=== PATIENT | female | born 2000 | race Two or more races ===

== ENCOUNTER 2023-09-11 15:31 | Emergency (ER) | payer MEDICAID, SELFPAY ==
[2023-09-11 16:16] VITALS: BP 113/71; PULSE 91; RESP 16; TEMP 36.8; O2SAT 99; BMI 18.7
--- NOTE | 2023-09-11 16:24 | ED.GENADULT ---
[facility] - General Adult General Chief complaint: Vaginal Bleeding Stated complaint: abd pain, vaginal bleeding Time Seen by Provider: 09/11/23 21:10 Source: patient and gaming host Mode of arrival: ambulatory History of Present Illness HPI narrative: 23-year-old female who presents with complaints of abdominal discomfort and is currently on her menstrual cycle but also reports a grayish vaginal discharge and some itching. Patient is 5 months Related Data Previous Rx's Medication Instructions Recorded metronidazole 500 mg tablet 500 mg PO BID 7 days #14 tabs 09/12/23 cefuroxime axetil 500 mg tablet 500 mg PO BID 7 days #14 tabs 09/13/23 doxycycline hyclate 100 mg capsule 100 mg PO BID cough 14 days #28 09/13/23 caps metronidazole 500 mg tablet 500 mg PO BID 7 days #14 tabs 09/13/23 Allergies Allergy/AdvReac Type Severity Reaction Status Date / Time No Known Allergies Allergy Verified 09/11/23 16:22 Review of Systems Review of Systems: Pertinent positives and negatives as stated in HPI [facility] Past Medical History Source: nursing notes reviewed Medical History (Updated 09/14/23 @ 00:02 by Annette Pace) Menorrhagia Social History Social History Alcohol intake: current Alcohol intake frequency: holidays/special occasions only Advance Directives: No Advance Directives Information Provided: No Patient : No Physical Exam ED Vital Signs: Vital Signs - 24 hr 09/11/23 16:16 09/11/23 19:12 09/11/23 21:39 Temperature 98.3 F 98.1 F Pulse Rate 91 68 72 Respiratory Rate 16 18 16 Blood Pressure 113/71 116/77 111/75 Pulse Oximetry 99 100 100 Oxygen Delivery Method Room Air Room Air Room Air BMI result Body Mass Index 18.7 VITAL SIGNS: Reviewed. GENERAL: Well developed, well nourished, in no acute distress. HEAD: Normocephalic/atraumatic EYES: PERRLA, EOMI EARS: Ext canals without abnormality, TMs non-bulging and non-erythematous NOSE: Nares patent bilateral OROPHARYNX: no oral lesions noted, posterior pharynx clear and non-erythematous without noted tonsillar enlargement/erythema/exudates NECK: Supple, no adenopathy LUNGS: Normal breath sounds. No adventitious sounds or accessory muscle use. SpO2<100> CARDIOVASCULAR: Regular rate and rhythm without noted murmurs ABDOMEN: Soft, non-tender, non-distended with bowel sounds. MUSCULOSKELETAL: No tenderness, deformities, or effusions noted on gross inspection. EXTREMITIES: No cyanosis, clubbing or edema. SKIN: Inspection of the skin reveals no rashes NEUROLOGIC: Alert and oriented x 4. Strength and sensation to light touch were grossly intact x 4. Course Course Course Narrative: RME; 23 yold female presents to the for Vaginal bleeding and lower abdominal pain. unknown if she is . vaginal bleeding came late. labs ordered Medical Decision Making Medical Decision Making MDM Narrative: 23-year-old female with history and clinical presentation, DDX: Ectopic, UTI, STI, menstrual cycle discomfort. I reviewed all investigations and hematologic indices are negative for leukocytosis or left shift and there is no anemia or thrombocytopenia. Chemistry indices are grossly within normal limits without ELIZABETH there is no evidence of electrolyte or liver enzyme abnormalities. Beta hCG is undetectable. Urinalysis is significant for known menstrual bleeding findings and urine is negative. My interpretation is that patient is experiencing bacterial vaginosis and will receive prescription for treatment and was strongly encouraged with a community health advocate to follow-up on the results of her sexually transmitted infection testing. Lower clinical suspicion for STI. No concerns for torsion. Differential Diagnosis Differential Diagnoses: The differential diagnosis associated with the presentation includes Please see the discussion above Admission/Observation Consideration of admission/observation: Escalation of care including admission/observation considered Please see the discussion above Lab Data MDM Lab Attestation statement: I reviewed the patient's lab results. Please see the discussion above 09/11/23 18:34 09/11/23 18:34 Labs: Lab Results 09/11/23 Range/Units 18:34 WBC 9.1 (4.8-10.8) X10*3/uL RBC 4.76 (4.20-5.50) X10*6/uL Hgb 13.2 (12.0-16.0) g/dl Hct 40.5 (37.0-47.0) % MCV 85.1 (80.0-98.0) fL MCH 27.7 (27.0-33.0) pg MCHC 32.6 (31.0-35.0) g/dl RDW 15.6 (11.0-16.0) % Plt Count 340 (160-400) X10*3/uL MPV 10.5 (9.4-12.3) fL Immature Gran % (Auto) 0.2 (0.0-0.4) % Neut % (Auto) 67.2 (45-73) % Lymph % (Auto) 25.2 (20-40) % Wilkinson % (Auto) 4.7 (2-11) % Eos % (Auto) 1.9 (0-4) % Baso % (Auto) 0.8 (0-2) % Lymph # (Auto) 2.3 (1.2-4.9) X10*3/uL Wilkinson # (Auto) 0.4 (0.1-1.2) X10*3/uL Eos # (Auto) 0.2 (0.0-0.4) X10*3/uL Baso # (Auto) 0.1 (0.0-0.2) X10*3/uL Abs Immat Gran (auto) 0.02 (0.00-0.03) X10*3/uL Absolute Neuts (auto) 6.1 (2.0-8.3) x10*3/uL Absolute Nucleated RBC 0.000 (0.0-0.012) X10*3/uL Nucleated RBC % (auto) 0.0 (0.0-0.2) /100WBC Sodium 140 (135-145) mmol/L Potassium 4.2 (3.3-5.1) mmol/L Chloride 105 (96-108) mmol/L Carbon Dioxide 26 (22-29) mmol/L Anion Gap 13 (12-20) BUN 10 (9-16) mg/dL Creatinine 0.71 (0.5-1.4) mg/dL Estim Creat Clear Calc 100.9 Estimated GFR > 60 Random Glucose 89 (60-115) mg/dL Calcium 10.0 (8.4-10.2) mg/dL Total Bilirubin 0.6 (0.0-1.0) mg/dL AST 14 (5-31) U/L ALT 7 (0-31) U/L Alkaline Phosphatase 75 (39-117) U/L Total Protein 7.9 (6.5-8.0) g/dL Albumin 4.6 (3.5-5.0) g/dL Beta HCG, Quant < 2 mIU/mL Urine Color Yellow Urine Appearance Cloudy Urine pH 7.0 (5.0-9.0) Ur Specific [place] 1.025 (1.005-1.025) Urine Protein Trace (Neg-Trace) mg/dL Urine Glucose (UA) Negative (Negative) mg/dL Urine Ketones Trace (Negative) mg/dL Urine Blood Large (3+) H (Negative) Urine Nitrite Negative (Negative) Ur Leukocyte Esterase Moderate (2+) H (Negative) Urine RBC >20 H (0-2) /HPF Urine WBC >50 H (0-5) /HPF Ur Squamous Epith Cells 0-2 (0-2) /HPF Urine Bacteria Trace (None Seen) Hyaline Casts 0-2 (0-2) /LPF Urine Test NEGATIVE (NEGATIVE) Chlam trachomat DNA PCR NOT DETECTED (Not Detect.) N.gonorrhoeae DNA (PCR) DETECTED A (Not Detect.) Discharge Plan Discharge Clinical Impression: Bacterial vaginosis Patient Disposition: Home, Self-Care Instructions: Bacterial Vaginosis (ED) Additional Instructions: 1. Complete todo el ciclo de antibi?ticos seg?n lo prescrito. 2. Shilpi un seguimiento con mathews m?dico de atenci?n primaria en los pr?ximos 1 o 2 d?as. 3. Shilpi un seguimiento de los resultados de praful pruebas, deber?an estar disponibles en la ma?sherlyn. Regrese a la mellisa de emergencias si los s?ntomas empeoran. 1. Complete the entire course of antibiotics as prescribed. 2. Please follow-up with your primary care doctor in the next 1-2 days. 3. Please follow-up on the results of your testing, they should be available in the morning. Return to the ER for any worsening symptoms. Prescriptions: New metronidazole 500 mg tablet 500 mg PO BID 7 Days Qty: 14 0RF No Action cefuroxime axetil 500 mg tablet 500 mg PO BID 7 Days Qty: 14 0RF doxycycline hyclate 100 mg capsule 100 mg PO BID 14 Days Qty: 28 0RF metronidazole 500 mg tablet 500 mg PO BID 7 Days Qty: 14 0RF Interventions: ED Discharge Assessment Last Done: 09/12/23 00:53 Discharge Date/Time: 09/12/23 00:50 Print Language: Swiss
[2023-09-11 18:42] LABS: Basophils Absolute Auto 0.1 X10*3/uL (0.0-0.2); Basophils Percent Auto 0.8 % (0-2); Eosinophils Absolute Auto 0.2 X10*3/uL (0.0-0.4); Eosinophils Percent Auto 1.9 % (0-4); Hematocrit 40.5 % (37.0-47.0); Hemoglobin 13.2 g/dl (12.0-16.0); Imm Gran Abs Auto 0.02 X10*3/uL (0.00-0.03); Imm Gran Pct Auto 0.2 % (0.0-0.4); Lymphocytes Absolute Auto 2.3 X10*3/uL (1.2-4.9); Lymphocytes Percent Auto 25.2 % (20-40); MANUAL DIFF FLAG NO; Mean Corpuscular HGB Conc 32.6 g/dl (31.0-35.0); Mean Corpuscular Hemoglobin 27.7 pg (27.0-33.0); Mean Corpuscular Volume 85.1 fL (80.0-98.0); Mean Platelet Volume 10.5 fL (9.4-12.3); Monocytes Absolute Auto 0.4 X10*3/uL (0.1-1.2); Monocytes Percent Auto 4.7 % (2-11); Neutrophils Absolute Auto 6.1 x10*3/uL (2.0-8.3); Neutrophils Percent Auto 67.2 % (45-73); Platelet Count 340 X10*3/uL (160-400); Red Blood Count 4.76 X10*6/uL (4.20-5.50); Red Cell Distribution Width 15.6 % (11.0-16.0); White Blood Count 9.1 X10*3/uL (4.8-10.8)
[2023-09-11 18:44] LABS: Appearance Urine Cloudy; Color Urine Yellow; Glucose Urine UA Negative (Negative); Leukocyte Esterase Urine Moderate (2+) (Negative); Nitrite Urine Negative (Negative); Specific Gravity - Urine 1.025 (1.005-1.025); UMIC TRIGGER UACC YES; UPreg QC Valid YES; Urine Blood Large (3+) (Negative); Urine Ketones Trace mg/dL (Negative); Urine Pregnancy NEGATIVE (NEGATIVE); Urine Protein Trace mg/dL (Neg-Trace)
[2023-09-11 19:03] LABS: Alanine Aminotransferase 7 U/L (0-31); Albumin Level 4.6 g/dL (3.5-5.0); Alkaline Phosphatase 75 U/L (39-117); Anion Gap 13 (12-20); Aspartate Amino Transferase 14 U/L (5-31); Bilirubin Total 0.6 mg/dL (0.0-1.0); Blood Urea Nitrogen 10 mg/dL (9-16); Carbon Dioxide 26 mmol/L (22-29); Chloride 105 mmol/L (96-108); Creatinine Clr Calc Pharmacy 100.9; Estimated Glomerular Filt Rate > 60; Glucose Random 89 mg/dL (60-115); HCG Quantitative < 2 mIU/mL; Potassium 4.2 mmol/L (3.3-5.1); Sodium 140 mmol/L (135-145); Total Protein 7.9 g/dL (6.5-8.0)
[2023-09-11 19:12] VITALS: BP 116/77; PULSE 68; RESP 18; O2SAT 100
[2023-09-11 19:57] LABS: Bacteria Urine Trace (None Seen); Hyaline Casts Urine 0-2 /LPF (0-2); RBC Urine >20 /HPF (0-2); Squamous Epithelial Cell Urine 0-2 /HPF (0-2); UACC Culture Trigger YES; WBC Urine >50 /HPF (0-5)
[2023-09-11 21:39] VITALS: BP 111/75; PULSE 72; RESP 16; TEMP 36.7; O2SAT 100
[2023-09-12 00:51] VITALS: BP 116/83; PULSE 61; RESP 16; TEMP 36.7; O2SAT 98
[2023-09-12 04:47] LABS: CT PCR NOT DETECTED (Not Detect.); NG PCR DETECTED (Not Detect.)
== END 2023-09-12 00:50 | disposition home or self-care (01) ==
PROVIDERS: Physician Assistant; Emergency Provider Student in an Organized Health Care Education/Training Program
DX: N76.0 Acute vaginitis (principal)
CPT/HCPCS: 0353U; 36415; 80053; 81001; 81025; 84702; 85025; 87086; 87147; 99283; 99284

== ENCOUNTER 2023-09-13 03:02 | Emergency (ER) | payer MEDICAID, SELFPAY ==
--- NOTE | ~2023-09-13 | CT_ITS ---
EXAMINATION: CT ABDOMEN AND PELVIS WITH CONTRAST CLINICAL INFORMATION: Rule out tubo-ovarian abscess COMPARISON: None available. TECHNIQUE: Multidetector volumetric images were obtained from the superior aspect of the liver through the pubic symphysis following administration 85 mL of Omnipaque 350 intravenous contrast. Sagittal and coronal reformatted images were obtained on the technologist's workstation. Oral contrast: No This CT examination was performed using dose optimization techniques as appropriate, variously including the following: *Automated exposure control *Adjustment of mA and/or kV according to patient size (this includes techniques or standardized protocols for targeted exams where dose is matched to indication/reason for exam; i.e. extremities or head) *Use of iterative reconstruction technique DLP: 310 mGy-cm FINDINGS: LUNG BASES: The visualized lung bases are unremarkable. LIVER, GALLBLADDER, AND BILIARY TREE: The liver is normal in size, shape, and attenuation. No focal hepatic lesion or biliary ductal dilatation is present. The gallbladder is unremarkable with no evidence of radiopaque gallstones, gallbladder wall thickening, or obvious pericholecystic inflammatory changes. PANCREAS: Unremarkable. SPLEEN: Unremarkable. ADRENAL GLANDS: Unremarkable. KIDNEYS AND URETERS: Bilateral nephrograms are symmetric. No hydronephrosis or obstructing calculus identified. BLADDER: Unremarkable. GASTROINTESTINAL TRACT: No evidence of bowel obstruction or significant wall thickening. Appendix appears near the upper limits of normal in size, without surrounding infiltration to suggest appendicitis. No free fluid or free air is seen. ABDOMINAL WALL: No significant hernia is appreciated. LYMPH NODES: Normal. VASCULAR: Prominent pelvic veins are noted bilaterally, which can be seen with pelvic congestion syndrome. PELVIC VISCERA: Symmetric appearance of the bilateral ovaries, with multiple small cystic structures favoring follicles. Right ovary is noted along the right lateral pelvis, in the left ovary lies superior to the uterus. No specific findings to suggest tubo-ovarian abscess. OSSEOUS STRUCTURES: Unremarkable. CT/CT abdomen pelvis w IV con IMPRESSION: 1. No specific findings to suggest tubo-ovarian abscess. If clinical concern persists, assessment with pelvic ultrasound may be helpful. 2. Prominent pelvic veins, which can be seen with pelvic venous insufficiency.
--- NOTE | ~2023-09-13 | US_ITS ---
EXAMINATION: US PELVIS CLINICAL INFORMATION: Bilateral pelvic pain for 3 days COMPARISON: 09/13/2023 TECHNIQUE: Ultrasound of the pelvis is performed using both transabdominal and transvaginal transducers along with Doppler. Transvaginal imaging is performed due to inadequate visualization transabdominally. FINDINGS: Uterus: The uterus is anteverted and measures 9.3 x 4.6 x 5.3. No visible fibroid. The double wall endometrial thickness is 0.6 mm. Endometrium is heterogeneous, possibly containing debris. Small amount of fluid identified in the fundal endometrium. Per technologist, patient experiencing small amount of vaginal bleeding during examination. Adnexa: Both ovaries are visualized. Right ovary measures 3.4 x 2.4 x 3.2 cm for a volume of 13.7 mL. Arterial and venous flow documented to the right ovary. Left ovary measures 3.8 x 1.5 x 2.5 cm for volume of 5 mm. Flow documented to the left ovary. No free fluid or adnexal findings to suggest tubo-ovarian abscess. US/US pelvic and transvaginal IMPRESSION: Endometrial fluid/possible debris. No adnexal abnormality or free fluid.
[2023-09-13 03:12] VITALS: BP 102/62; PULSE 135; RESP 22; TEMP 36.9; O2SAT 98; BMI 18.3
[2023-09-13 03:15] VITALS: BP 116/73; PULSE 112; RESP 17; TEMP 36.8; O2SAT 100
[2023-09-13 03:25] LABS: Hematocrit 39.2 % (37.0-47.0); Hemoglobin 12.9 g/dl (12.0-16.0); Mean Corpuscular HGB Conc 32.9 g/dl (31.0-35.0); Mean Corpuscular Hemoglobin 27.7 pg (27.0-33.0); Mean Corpuscular Volume 84.1 fL (80.0-98.0); Mean Platelet Volume 10.4 fL (9.4-12.3); Platelet Count 290 X10*3/uL (160-400); Red Blood Count 4.66 X10*6/uL (4.20-5.50); Red Cell Distribution Width 15.6 % (11.0-16.0); White Blood Count 23.6 X10*3/uL (4.8-10.8)
--- OUTSIDE RECORDS SUMMARY | 2023-09-13 03:31 | XMS_ITS | Continuity of Care Document ---
Author Name Unknown Organization [facility] Address [address] [place] [address] Care Team Providers Care School Patrol Name Role Phone Not on Staff, PCP Primary Care Physician Unavail able Encounter [facility] Date(s): 12/05/22 - 01/06/23 [facility] [address] [address]- Attending Physician: Not on Staff, Attending MD Problem List Condition Confirmation Course Effective Dates Status Health St at[facility] Informant Confirmed Active Patient Care team information Care Team Personnel Name: Not on Staff, PCP Position: S Physician (General Medicine) Member Role: PCP
--- OUTSIDE RECORDS SUMMARY | 2023-09-13 03:31 | XMS_ITS | Continuity of Care Document ---
Author Name Unknown Organization [facility] Address [address] [place] [address]- Care Team Providers Care Client Engagement Manager Name Role Phone Not on Staff, PCP Primary Care Physician Unavail able [place] [facility] [place] 12/20/22 - 01/19/[address] [address]- Attending Physician: Laureen Beatty Admitting Physician: Laureen Beatty Referring Physician: Laureen Beatty Allergies, Adverse Reactions, Alerts No Known Allergies Medications PNV Plus By Mouth, Daily, 0 Refills, Maintenance, 01/10/23 14:24:00 EST, Partial fill upon patient request if the prescription is for a schedule II opioid drug. Start Date: 01/10/23 Status: Ordered Problem List Condition Confirmation Course Effective Dates Status Health St at[facility] Informant Limited care Confirmed Active Iron deficiency anemia of Confirmed Active Uses Welsh as primary spoken language Confirmed Active Confirmed Active Social History Social History Type Response Smoking Status Never (less than 100 in lifetime); Exposure to Secondhand Smoke: No; Tobacco user in household: No entered on: 01/10/23 Sex Patient Care team information Care Team Personnel Name: Not on Staff, PCP Position: [facility] Physician (General Medicine) Member Role: PCP Care Team Related Persons Name: RENÉE MASON Address: home [address] [place] [address]
--- OUTSIDE RECORDS SUMMARY | 2023-09-13 03:31 | XMS_ITS | Continuity of Care Document ---
Author Name Unknown Organization [facility] Address [address] [place] [address]- Care Team Providers Care Environmental Program Manager Name Role Phone Not on Staff, PCP Primary Care Physician Unavail able [place] [facility](s): 12/18/22 - 01/19/23 [facility] [address] [address]- Attending Physician: Not on Staff, Attending MD Allergies, Adverse Reactions, Alerts No Known Allergies Medications PNV Plus By Mouth, Daily, 0 Refills, Maintenance, 01/10/23 14:24:00 EST, Partial fill upon patient request if the prescription is for a schedule II opioid drug. Start Date: 01/10/23 Status: Ordered Problem List Condition Confirmation Course Effective Dates Status Health St at[facility] Informant Limited care Confirmed Active Iron deficiency anemia of Confirmed Active Uses Tanzanian as primary spoken language Confirmed Active Confirmed Active Social History Social History Type Response Smoking Status Never (less than 100 in lifetime); Exposure to Secondhand Smoke: No; Tobacco user in household: No entered on: 01/10/23 Sex Patient Care team information Care Team Personnel Name: Not on Staff, PCP Position: S Physician (General Medicine) Member Role: PCP Care Team Related Persons Name: RENÉE MASON Address: home [address] [place] [address]
--- OUTSIDE RECORDS SUMMARY | 2023-09-13 03:32 | XMS_ITS | Continuity of Care Document ---
Author Name Unknown Organization [facility] Address [address] [address]- Care Team Providers Care Logging Shovel Operator Name Role Phone Not on Staff, PCP Primary Care Physician Unavail able Encounter [facility] [id number] Date(s): 01/14/23 - 02/13/23 [facility] [address] [address]- Attending Physician: Laureen Beatty Admitting Physician: Laureen [...] Iron deficiency anemia of Confirmed Active Uses Swedish as primary spoken language Confirmed Active Confirmed Active Social History Social History Type Response Smoking Status Never (less than 100 in lifetime); Exposure to Secondhand Smoke: No; Tobacco user in household: No entered on: 01/10/23 Sex Patient Care team information Care Team Personnel Name: Not on Staff, PCP Position: S Physician (General Medicine) Member Role: PCP Care Team Related Persons Name: ISABELLA RENÉE Address: home [address] [place] [address]
--- OUTSIDE RECORDS SUMMARY | 2023-09-13 03:32 | XMS_ITS | Continuity of Care Document ---
Author Name Unknown Organization [facility] Address [address] [place] [address]- Care Team Providers Care Gallery Or Museum Attendant Name Role Phone Not on Staff, PCP Primary Care Physician Unavail able Encounter [facility] Date(s): 11/30/22 - 12/30/22 [facility] [address] [address]- Problem List Condition Confirmation Course Effective Dates Status Health St atus Informant Confirmed Active Patient Care team information Care Team Personnel Name: Not on Staff, PCP Position: S Physician (General Medicine) Member Role: PCP
--- OUTSIDE RECORDS SUMMARY | 2023-09-13 03:32 | XMS_ITS | Continuity of Care Document ---
Author Name Unknown Organization [facility] Address [address] [place] [address]- Care Team Providers Care Operating Engineer Apprentice Name Role Phone Not on Staff, PCP Primary Care Physician Unavail able [facility]counter [facility] [id number] Date(s): 01/14/23 - 01/21/23 [facility] [address] [address]- Attending Physician: Not on Staff, Attending MD Referring Physician: Not on Staff, Referring MD Allergies, Adverse Reactions, Alerts No Known Allergies Medications PNV Plus By Mouth, Daily, 0 Refills, Maintenance, 01/10/23 14:24:00 EST, Partial fill upon patient request if the prescription is for a schedule II opioid drug. Start Date: 01/10/23 Status: Ordered Problem List Condition Confirmation Course Effective Dates Status Health St atus Informant Limited care Confirmed Active Iron deficiency anemia of Confirmed Active Uses Sierra Leonean as primary spoken language Confirmed Active Confirmed Active Vital Signs Most recent to oldest [Reference Range]: 1 Height 165 cm (01/14/23 3:26 PM) Weight 63.0 kg (01/14/23 3:26 PM) Body Mass Index [18.5-24.99 kg/m2] 23.14 kg/m2 (01/14/23 3:26 PM) Blood Pressure [90-138/55-84 mm Hg] 103/ 67mm Hg (01/14/23 3:26 PM) Blood pressure sites Arm, left (01/14/23 3:26 PM) Weight Obtained Via Standing scale (01/14/23 3:26 PM) Social History Social History Type Response Smoking Status Never (less than 100 in lifetime); Exposure to Secondhand Smoke: No; Tobacco user in household: No entered on: 01/10/23 Sex Patient Care team information Care Team Personnel Name: Not on Staff, PCP Position: S Physician (General Medicine) Member Role: PCP Care Team Related Persons Name: SCARLET MASONELA Address: home [address] [place] [address]
--- OUTSIDE RECORDS SUMMARY | 2023-09-13 03:32 | XMS_ITS | Continuity of Care Document ---
Author Name Unknown Organization [facility] ter Address [address] [place] [id number]- Care Team Providers Care Release Specialist Name Role Phone Not on Staff, PCP Primary Care Physician Unavail able Encounter [facility] Date(s): 03/19/23 - 03/22/[address] [address]- Discharge Disposition: A-D/C Home Attending Physician: Pedro Agrawal MD Admitting Physician: Pedro Agrawal MD Referring Physician: Not on Staff, Referring MD Allergies, Adverse Reactions, Alerts No Known Allergies Medications Acetaminophen Tablet 650 mg, Tablet, By Mouth, Every 4 hours, PRN for Pain , Mild, (1-3), may give 325mg per patient preference and re-dose with 325mg within 4 hours, if needed. Patient should only receive a total of 650mg of Acetaminophen every 4 hours., Routine, 03/20... Start Date: 03/20/23 Stop Date: 03/23/23 Status: Discontinued ferrous sulfate 325 mg oral tablet 1 tablet = 325 mg, By Mouth, Daily, # 90 tablet, 3 Refills, Maintenance, 03/22/23 12:41:00 EDT, Tablet, [facility]/pharmacy #[id number], Partial fill upon patient request if the prescription is for a schedule II opioid drug., 165, cm, 03/22/23 10:41:00 EDT, Height... Start Date: 03/22/23 Status: Ordered ibuprofen 600 mg oral tablet 600 mg, 1, tablet, By Mouth, Every 6 hours, PRN, # 30 tablet, Refills 3, Tot. Refills 3, Acute 04/05/23 12:42:00 EDT, Pain , Mild, 03/22/23 12:40:00 EDT, Route to Pharmacy Electronically, [facility]/pharmacy #[id number], Partial fill upon patient request if the pr... Start Date: 03/22/23 Stop Date: 04/05/23 Status: Ordered Ibuprofen Tablet 800 mg, Tablet, By Mouth, Every 8 hours, PRN for Pain , Moderate, (4-6), may give 400mg per patientpreference and re-dose with 400mg within 8 hours if needed. Patient should only receive a total of 800mg of Ibuprofen every 8 hours., Routine, ... Start Date: 03/20/23 Stop Date: 03/23/23 Status: Discontinued norethindrone 0.35 mg oral tablet 1 tablet = 0.35 mg, By Mouth, Daily, # 84 tablet, 4 Refills, Maintenance, 03/22/23 12:41:00 EDT, Tablet, [facility]/pharmacy #[id number], Partial fill upon patient request if the prescription is for a schedule IIopioid drug., 165, cm, 03/22/23 10:41:00 EDT, Heigh... Start Date: 03/22/23 Status: Ordered PNV Plus By Mouth, Daily, 0 Refills, Maintenance, 01/10/23 14:24:00 EST, Partial fill upon patient request if the prescription is for a schedule II opioid drug. Start Date: 01/10/23 Status: Ordered Tylenol 325 mg oral tablet 650 mg, 2, tablet, By Mouth, Every 4 hours, PRN, # 30 tablet, Refills 3, Tot. Refills 3, Acute 04/05/23 12:45:00 EDT, for pain, 03/22/23 12:40:00 EDT, Route to Pharmacy Electronically, [facility]/pharmacy #[id number], Partial fill upon patient request if the presc... Start Date: 03/22/23 Stop Date: 04/05/23 Status: Ordered Problem List Condition Confirmation Course Effective Dates Status Health St atus Informant Limited care Confirmed Active Iron deficiency anemia of Confirmed Active Uses Indian as primary spoken language Confirmed Active Confirmed Active Vital Signs Most recent to oldest [Reference Range]: 1 2 3 Height 165 cm (03/22/23 10:41 AM) 165 cm (03/22/23 12:00 AM) 165 cm (03/21/23 7:58 AM) Weight 65.5 kg (03/19/23 7:53 PM) Oxygen Saturation [94-100 %] 100 % (03/22/23 12:00 AM) 100 % (03/21/23 4:05 PM) 100 % (03/21/23 5:27 AM) Pulse Rate [55-90 bpm] 68 bpm (03/22/23 10:41 AM) 99 bpm *H* (03/22/23 12:00 AM) 95 bpm *H* (03/21/23 4:05 PM) Body Mass Index [18.5-24.99 kg/m2] 24.06 kg/m2 (03/19/23 7:53 PM) Blood Pressure [90-138/55-84 mm Hg] 94/56mm Hg (03/22/23 10:41 AM) 107/68mm Hg (03/22/23 12:00 AM) 104/66mm Hg (03/21/23 4:05 PM) Respiratory Rate [16-30 br/min] 17 br/min (03/22/23 10:41 AM) 18 br/min (03/22/23 1:02 AM) 18 br/min (03/22/23 1:02 AM) Temperature [96.8-100.4 DegF] 98.2 DegF (03/22/23 10:41 AM) 98.8 DegF (03/22/23 12:00 AM) 98.4 DegF (03/21/23 4:05 PM) Mode of Delivery (Oxygen) Room air (03/22/23 12:00 AM) Room air (03/21/23 4:05 PM) Room air (03/20/23 10:00 PM) Blood pressure sites Arm, right (03/22/23 10:41 AM) Arm, right (03/21/23 4:05 PM) Arm, left (03/21/23 7:58 AM) Temperature Route Oral (03/22/23 10:41 AM) Oral (03/22/23 12:00 AM) Oral (03/21/23 4:05 PM) Dry Weight 65.5 kg (03/19/23 7:53 PM) Social History Social History Type Response Smoking Status Never (less than 100 in lifetime); Exposure to Secondhand Smoke: No; Tobacco user in household: No entered on: 2/23/23 Sex History and physical note * Dana Tillman MD: MODIFY Dana Tillman MD: MODIFY Event Display: History and Physical Hospital Authored Date: [id number] Patient: ??JOSE ANGEL HOWE ? Age:??22 Years?Sex:??Female?:??2000?? OB Reason for Admission OB Reason for Admission Reason for admission: Induction of labor Reason for Induction: Elective >39wks with favorable cervix LMP/EGA/STIVEN Gestational Age (EGA) and STIVEN? * Note: EGA calculated as of 03/19/2023 ?? STIVEN:??03/18/2023?EGA*:??40 weeks 1 day ? History?(1,0,0,1)?Method:??Ultrasound??(12/18/2022) History of Present Illness 22 yo at 40+1 here for induction due to advanced dilation. She was found to be 8 cm in the office this morning, not mckinley. Physical Exam Vitals & Measurements T:??97.9?F ?? WA:??102?? RR:??18?? BP:??124/74?? SpO2:??99%?? HT:??165??cm?? WT:??65.5??kg?? BMI:??24.06?? Constitutional:??No acute distress, resting comfortably. Respiratory:??Normal work of breathing. Lungs clear to auscultation bilaterally. Cardiovascular:??Regular rate and rhythm, no murmurs.? Abdomen/GI:??Gravid uterus. Soft, nontender. Extremities:??No calf tenderness or edema. Skin:??No rash or jaundice. Neurological/Psychiatric:??Mood and affect congruent and stable. OB Assessment Baby A Baseline:130 Baseline Description:Normal, 110-160 bpm Baseline Variability:Moderate variability Accelerations:Present Deceleration:None Activity:Present Uterine Number of Contractions per 10 minutes2 Monitor Mode, UterineExternal Assessment/Plan Assessment:??22 yo at 40+1 here for induction due to advanced dilation. GBS neg. ?? Plan for AROM. Pitocin augmentation if indicated.??Cat I tracing. Re-assess in 2 hours or PRN. ? Anemia affecting (O99.019):? - Admission Hgb 11.9 ?? Encounter for induction of labor (Z34.90):? 8 cm in office this morning CEFM AROM followed by pitocin if indicated. Low risk PPH ? History and plan reviewed with Dr. Tillman. OB History History?(1,0,0,1)? # 1 ?Baby 1 ?Outcome Date:??08/05/2017?Outcome or Result:??Vaginal ?Gest Age:??40 weeks ? Outcome:??Live ? Sex:??Female Labs Labs Labs & Tests Antibody Screen: Negative (01/18/23) Blood Type: A Positive (01/18/23) Chlamydia Trachomatis Amplified Probe: NEGATIVE (01/14/23) Glucose 50 Gm, +60 Minutes: 97 mg/dL (01/14/23) Hct: 39.2 % (03/19/23) Hemoglobinopathy Interpretation: Normal hemoglobins, with anemia. (01/14/23) Hepatitis B Surface Antigen: NEGATIVE (01/14/23) Hepatitis C Ab: NEGATIVE (01/14/23) Hgb: 11.9 Gm/dL (03/19/23) HIV 4th Generation Ab-Ag Result: NEGATIVE (01/14/23) RPR Titer Result: NOT INDICATED (01/14/23) Rubella IgG Ab: POSITIVE (01/14/23) Syphilis Screen by DUTCH: NEGATIVE (01/14/23) Urine Culture: Urine Culture (03/07/23) Problem List Active Active Problem List Iron deficiency anemia of : (Medical) Limited care: (Medical) : (Medical) : (Obstetric) (12/18/22) Uses Indian as primary spoken language: (Medical) Procedure/Surgical History No qualifying data available. Home Medications Multivitamin, : By Mouth, Daily Allergies NKA Social History Alcohol Use: Never. Alcohol use in household: No., 01/10/2023 Electronic Cigarette/Vaping Electronic Cigarette Use: Never., 01/10/2023 Employment/School Status: Homemaker., 01/10/2023 Exercise Self assessment: Poor condition., 01/10/2023 Home/Environment Living situation: Home/Independent. Lives with: sister and neice., 01/10/2023 Nutrition/Health Diet: Regular., 01/10/2023 Sexual Sexually involved in last 6 months: Yes. Gender identity: Identifies as female. Self described orientation: Straight or heterosexual. Preferred pronoun: She/her., 01/10/2023 Substance Abuse Use: Never. Substance abuse in household: No., 01/10/2023 Tobacco Use: Never (less than 100 in lifetime). Exposure to Secondhand Smoke: No. Tobacco user in household: No., 01/10/2023 Family History Mat. Grandmother: Diabetes mellitus Aunt: Breast cancer; Cancer Plan No Data Found * Primo BAIRES, Dana Cordon: PERFORM Event Display: History and Physical Hospital Authored Date: Attending Attestation:?? I have seen and evaluated this patient.?? I have discussed the case and management with the resident/team??and agree with the findings and plan of care as documented in the resident note. /Cesario Tillman MD Hospital Progress note * Melissa Almendarez LPN: PERFORM, SIGN, VERIFY Event Display: Progress Note Hospital Authored Date: Patient: JOSE ANGEL HOWE Age: 22 years Sex: Female : 2000 Associated Diagnoses: None Author: Melissa Almendarez LPN Indian [facility] bilingual interpreter # [id number] used to review and post care, Dr Simmons in to speak with pt about echo this afternoon. Pt out of bed ad randee ambulating in room frequently. Taking in food and fluids well without nausea. Pt voiding without difficulty, brian care reviewed. When questioned about how she is feeling patient admits that she was able to shower without dizziness but does feel a little weak if she has been out of bed ambulating in room for a long time . Pt statespain is well controlled on current medication regime. Mild rubra flow with no clots noted. Pt usingTucks to brian area. Caring for appropriately, will continue to monitor. Call house within reach. * Paula Vasquez RN: PERFORM, SIGN, VERIFY Event Display: Progress Note Hospital Authored Date: Patient: JOSE ANGEL HOWE Age: 22 years Sex: Female : 2000 Associated Diagnoses: None Author: Paula Vasquez RN OB stable. Fundus remains firm 1 below umbilicus, lochia mild. Patient reports no clots denies saturation of pads within 1 hour. Passing gas, voiding, appropriately. Patient ambulating in room without assistance. Pain is well controlled this shift and educated on staying on top of pain. Patient reports understanding of pain control. Call house appropriately in place. Please see [facility] for full assessment. Will continue to monitor throughout shift. * Mallorie Hernandez MD: PERFORM, SIGN, VERIFY Event Display: Progress Note Hospital Authored Date: [id number] Patient: JOSE ANGEL HOWE Age: 22 years Sex: Female : 2000 Associated Diagnoses: None Author: Mallorie Hernandez MD Pt resting in bed. Looks well. Visit performed with [employer] bilingual interpreter. State she is doing better,but still gets dizzzy if stnds for more thatn 5 minutes. Bleeding is like a heavy period now. Basic Information Summary : 2 Parity: 1 . Baby A - Weight: 3.655 kg Baby A - Date, Time of : 03/20/23 23:34:00 Baby A - Gender: Female Baby A - Complications: Other: 20 sec shoulder; nuchal x3 EGA at Documented Date, Time: 40W 1D Weight at Delivery Baby A - Delivery Type: Vaginal Delivery Complications: Hemorrhage, peripartum or Subjective . Formula Feeding. Ambulating. Pain well controlled. Lochia = menses. Objective Recent Vital Signs Temperature: 98.4 DegF (03/21/23 16:05:00) Pulse Rate: 95 bpm High (03/21/23 16:05:00) Respiratory Rate: 20 br/min (03/21/23 16:05:00) Systolic Blood Pressure: 104 mm Hg (03/21/23 16:05:00) Diastolic Blood Pressure: 66 mm Hg (03/21/23 16:05:00) Oxygen Saturation: 100 % (03/21/23 16:05:00) Constitutional: Appearance: Normal affect. Respiratory: Respirations: Within normal limits. Abdomen/GI: Abdomen/GI: Fundus ( Firm, Below umbilicus ). Extremities:: Within normal limits. Skin: Skin: Normal exam. Neurological/Psychiatric: Affect: Normal. Results Review Medication List Active Medications Ordered Acetaminophen: 650 mg, By Mouth, Every 4 hours, PRN: Pain , Mild. Calcium Carbonate: 1,000 mg, 2 tablet, Chew, 3 times a day, PRN: Indigestion. Docusate: 100 mg, 1 capsule, By Mouth, 2 times a day, PRN: Constipation. Ibuprofen: 800 mg, By Mouth, Every 8 hours, PRN: Pain , Moderate. Lactated Ringers Injection 1,000 mL: 125 mL/hr, IV Infusion. Multivitamin, : 1 tablet, By Mouth, Daily. Documented Multivitamin, : By Mouth, Daily, 0 Refill(s). Medications Inactivated in the Last 72 Hours ceFAZolin: 2 Gm, IV Push, Once. Methylergonovine: 0.2 mg, 1 mL, Intramuscular, Once. Morphine: 4 mg, IV Push Slowly, Once, PRN: Pain , Severe. Oxytocin: 10 units, 1 mL, Intramuscular, Once. Oxytocin 30 units: 334 mL/hr, IV Infusion, Stop: 03/20/23 5:03:00 EDT. Tranexamic Acid: 1 Gm, 10 mL, 200 mL/hr, IVPB, Once. . Impression and Plan Impression Post- day # 2 Had PPH and has been transfused a total of 3 units prbcs. H/H stable. Still with some dizzyness when she stnads. Plan Will order CBC for tomorrow morning. If still stable, discharge toorrow on po iron. COnsider iron tansfusion. PBS Note * Kia Faulkner RN: PERFORM Event Display: Discharge/Transfer Note Hospital Authored Date: [id number] Nursing Discharge Note Entered On: 03/22/2023 17:06 EDT Performed On: 03/22/2023 17:05 EDT by Kia Faulkner RN Nursing Discharge Note 2 Discharge Time : 03/22/2023 17:04 EDT Discharge Level of Care at Discharge : Home/Shelter/Foster Care Clothes Shaker Utilized : Yes Patient Left Unit Via : Wheelchair Patient Accompanied Off Unit with : Significant other DC Instructions Provided & Signed by Pt : Yes Patient Understands D/C Instructions : Yes Patient Instructions Discharge Signed : Yes Did Pt have Specialty Bed or Wound Vac : No Kia Faulkner RN - 03/22/2023 17:05 EDT * Olivia Chan DO: PERFORM Event Display: Discharge/Transfer Note Hospital Authored Date: [id number] Patient: ??JOSE ANGEL HOWE ? Age:??22 Years?Sex:??Female?:??2000?? Admit Date Admission Date: 03/19/2023 Discharge Date 03/22/2023 OB Reason for Admission OB Reason for Admission Reason for admission: Induction of labor Reason for Induction: Elective >39wks with favorable [facility]ix [facility] Course 22yo @ 40.1wksGA presented in active labor. She quickly progressed and had complicated by shoulder dystocia of 20 seconds relieved with McRobert's and Woodscrew maneuver and hemorrhage of 2.8L requiring pitocin, TXA, methergine and ??transfusion of??3 units pRBC. she recovered appropriately meeting appropriate milestones with stable vitals and hemoglobin. She wasdischarged home on PPD2 in good condition. ?? Today she is feeling well. Dizziness has improved. She has minimal abdominal pain, controlled with current pain medications.??Lochia decreasing.??Voiding and passing flatus without difficulty. Tolerating po intake. Breast and bottle feeding without difficulty. Denies fever/chills, lightheadedness/dizziness, chest pain, palpitations, shortness??of breath. Objective/Physical Exam on Day of Discharge Vitals & Measurements T:??98.2?F ?? HR:??86(Monitored)?? WA:??68?? RR:??17?? BP:??94/56?? SpO2:??100%?? HT:??165??cm?? WT:??3.655??kg?? BMI:??24.06?General:??No acute distress. Alert and oriented. Appears well. Pleasant and conversant. ?Cardiovascular:??Trace peripheral edema. ?Respiratory: Breathing unlabored.?Abdomen: Nontender, nondistended. No rebound/guarding/rigidity.??Fundus firm below umbilicus. ? Extremities: No calf tenderness, erythema, or??swelling. ?Skin: Warm and dry.?Neurologic: Cranial nerves grossly intact.? Assessment/Plan/Discharge Diagnosis care following vaginal delivery (Z39.2):? -Meeting appropriate milestones -Continue current pain medications -Support given for -Encouraged ambulation -PPBC: POP then patch at 6wk PPV -Anticipate discharge today. Reviewed discharge precautions including calling her provider with fever/chills, temp >100.4F, severe abdominal pain refractory to medications, heavy vaginal bleeding >1 pad/hr, calf swelling or tenderness, chest pain, shortness of breath, concerns about mood or her ability to care for her , or any other acute concerns. ?? hemorrhage (O72.1):? -QBL 2.8L,??received??IM/IV Pitocin, TXA, methergine -Received??3u prbc -Coags wnl at time of hemorrhage. Hg stable this am at 9.0 -Symptoms of anemia improved -Recommended continuing iron supplementation. Rx for po iron sent. ?? Delivery Summary Delivery Summary Maternal Information ??Labor Information ?Baby A ?Labor Onset Methods: ??Spontaneous ??Delivery Information ?Gestational Age at Delivery: ??40W 1D ?Delivery Complications: ??Hemorrhage, peripartum or ?Blood Loss - Quantitative: ??2800 mL ? Baby A ??Delivery Information ?Delivery Type: ??Vaginal ?Date, Time of : ??03/20/23 23:34:00 ? Position: ??Supine ?Foot of bed removed: ??Yes ?Delayed Cord Clamping: ??Yes ?Placenta Delivery Date/Time: ??03/20/23 23:37:00 ?Placenta Delivery Method: ??Assisted ?Placenta Appearance: ??Normal ?Placenta to Pathology: ??No ??Care Team ?Attending Provider: ??Dana Tillman MD ?Delivery Physician: ??Layton NORWOOD, Sulma Aponte ?Surgical Assistant Provider #1: ??Migdalia Correa MD ?tableau architect #1: ??Aramis Estevez RN ?tableau architect #2: ??Nevin Prescott RN ??Labor Information ?ROM Date, Time: ??03/19/23 22:08:00 ? monitoring: ??External monitor ?? Information ? Outcome: ??Live ? Position: ??Occiput anterior ? Weight: ??3.655 kg ? Score 1 minute: ??8 ? Score 5 minute: ??9 ? Score 10 minute: ??9 ?Transferred To: ?? Care area with Family ?Umbilical Cord Description: ??3 vessel cord ? Complications: ??Shoulder Dystocia ?Anterior Shoulder: ??Left ?Gender: ??Female ? Discharge Medications ???Multivitamin, (PNV Plus) Feeding Method Feeding Method: , Formula (03/22/23 09:00:00) * Kia Faulkner RN: PERFORM Event Display: Patient Education/Instruction Authored Date: [id number] Inpatient Adult Discharge Instructions [address] [address] Name: JOSE ANGEL HOWE : 2000 Visit: 03/19/2023 19:33:00 Current Date: 03/22/2023 15:25 Account: [id number] Inpatient Adult Discharge Instructions We would like to thank you for allowing us to assist you with your healthcare needs. The following includes patient education materials and information regarding your injury/illness. Our entire staffstrives to provide an excellent experience for our patients and their families. PLEASE ENSURE YOU FOLLOW-UP PER THE INSTRUCTIONS BELOW! ?? YOUR OPINION IS IMPORTANT TO US! Please complete the survey you may receive by mail or email. Your feedback will be used to make improvements to the healthcare experiences of our patients and their families. Surveys are administered by [employer] ?? If further treatment with your primary care physician or another doctor is recommended, it is important for you to keep the appointment. Call your primary care physician or return to the Emergency Department immediately if your condition worsens, fails to improve, or new symptoms develop. If you need to find a doctor, you can call [facility] for a referral at [phone] or toll free at [phone]) or log in to [email or web address].. ?? You can view and manage your care through the patient portal or by using a health care bella of your choosing. [employer] is a website that allows you to securely view your medical information including your hospital discharge summary, office visit summaries, medications and follow-up visits. You can also request appointments, renew medications, and request access to your medical information using a health care bella of your choosing, or just ask a question. You can enroll at [email or web address] or register during your next office visit. You have been discharged from [facility], Patient Care Unit: [facility]. If you have any questions regarding these instructions after you leave, please call us and we will be happy to assist you. [facility] Your Care Team Attending Physician Pedro Agrawal MD Discharging Providers Olivia Chan DO A Reason for Your Visit Induction of labor Your Diagnosis 39 weeks gestation of Anemia affecting Encounter for induction of labor care following vaginal delivery hemorrhage Tests Performed Below is a partial list of the tests performed during your hospitalization. You may have had other tests and procedures not included in this list. Please discuss all test results with your provider. CBC Creatinine Fibrinogen HOLD GEL TUBE INR PTT Type and Screen Primary Care Provider Not on Staff, PCP Advance Directive . Discharge Vitals Temperature: 98.2 DegF Height: 165 cm Pulse Rate: 68 bpm Weight: 65.5 kg Respiratory Rate: 17 br/min Body Mass Index: 24.06 kg/m2 Systolic Blood Pressure: 94 mm Hg Body surface area: 1.73 Diastolic Blood Pressure: 56 mm Hg ?? Oxygen Saturation: 100 % ?? Studies Pending All tests and labs ordered during this hospital stay have been completed unless listed below. Please discuss all pending results with your provider listed above in these instructions. ?? COVID-19 (2019 Novel Coronavirus) PCR Transfuse RBCs What to do next Instructions From Your Doctor Discharge Orders Instructions from your Care Team Instrucciones de cuido de abran para la nueva usha?y el beb? [Discharge Care Instructions for the New Mom and Baby]?? Olla un momento para leer estas instrucciones?tiles antes de salir del hospital. Abrams enfermera responder?cualquier pregunta que pueda tener con mucho gusto. Tambi??n puede encontrar esta y m??s informaci??n en el folleto p??rpura??Formando lakshmi heather, la Gu??a de nuevos comienzos de [facility] y la Gu??a para servicios de consulta de lactancia,??entregados a usted despu??s del nacimiento de abrams beb??. Tambi??n puede llamar a nuestras estaciones de enfermeras si tiene m??s preguntas. [facility]???s: Primer piso ([phone]). Llame a abrams m??dico si tiene cualquier pregunta o preocupaci??n antes de abrams pr??xima sukumar.?? Para recibir ayuda continua, por favor fay clic a Me gusta en nuestra p??michelle [employer]???s [employer] en Facebook y [employer]??base a nuestro bolet??n de noticias por correo electr??katina en??[email or web address]. Se le enviar??n noticias e informaci??n hasta que abrams beb?cumpla fay a??os.?? Instrucciones para la nueva madre?? [Instructions for the New Mother]?? Actividad:?? [Activity:]?? Char las pr??ximas 2 semanas en casa - no levante objetos pesados, evite subir escaleras innecesariamente y no conduzca (especialmente si est?tomando medicamentos que le puedan causar kera??o o siente que no ta dormido lo suficiente).?? Char las pr??ximas 4 a 6 semanas - no utilice tampones, no se fay irrigaci??n vaginal, no tengarelaciones sexuales.?? Use abrams botella perineal para enjuagar abrams perineo hasta que se detenga abrams flujo vaginal. Si tiene puntos de sutura en abrams trasero, generalmente se disuelven en 7 o 10 d??as. Apl??quese Tucks o pa??os de hamamelis hasta que el dolor haya pasado. Use el ba??o en casa cada 3 a 4 horas, enju??guese y cambie erlinda toallas sanitarias.?? Las duchas tibias se sienten muy dez para los m??sculos, espaldas y traseros adoloridos.?? Ejercicio:?? [Exercise:]?? Caminar es la mejor forma de ejercicio. Espere hasta abrams sukumar de seguimiento con abrams m??dico de 4 a 6semanas antes de participar en actividades m??s extenuantes.?? Dieta:?? [Diet:]?? Feli suficientes l??quidos para evitar el estre??imiento y ayudar a abrams recuperaci??n.?? Coma suficientes alimentos ricos en maura bteo la carne gallo, cereales enriquecidos con maura beto Total y Cream of Wheat, pasas, ciruelas, hojas verdes y espinacas. Estos le ayudar??n a subir abrams recuento sangu??edward ya que todas las mujeres pierden algo de meka despu??s del parto. Tambi??n, a??ada alimentos ricos en vitamina C beto las fresas, chinas/naranjas, papayas, col rizada y pimientos.?? Contin??e tomando erlinda vitaminas prenatales si est?amamantando. Si no est?amamantando, siga las instrucciones de abrams m??dico. Si le recetaron suplementos de maura beto sulfato de maura, es importante continuar usando estos hasta que abrams m??dico o partera le indique que pare.?? Cuidado de los senos para madres lactantes?? [Breast Care for Nursing Mothers:]?? Use un sost??n de maternidad c??modo y firme. No se recomienda un sost??n con aros.?? Extraiga gotas de leche materna y p??selas sobre erlinda pezones y areola (jennifer alison??n) antes y despu??s de cada alimentaci??n para proteger y sanar la piel sensitiva y despu??s, seque erlinda pezones al aire. Si est?sintiendo alg??n dolor, puede comprar cremas para el pez??n beto [employer] o [employer]. Util??romulo de la siguiente manera: termine abrams sesi??n de alimentaci??n o bombeo, extr??igase el calostro sobre abrams pez??n y d??jelo secar al aire. Aplique la crema al pez??n y areola. Util??romulo en tulio??as cantidades para obtener mejores resultados.?? Si est?teniendo dificultad para lograr que el beb?se pegue al seno debido a la hinchaz??n de la areola, intente aplicar presi??n con erlinda dedos por un par de minutos por encima y por debajo del pez??n y, mueva erlinda dedos hacia afuera, ablandando el?vibha y empujando la hinchaz??n hacia afuera.Esta t??cnica es conocida beto ablandamiento de presi??n inversa. Para demostraciones de esta y otras t??cnicas beto la t??cnica de Expresi??n de mano de [place] ( [place] Hand Expression ), por favor refi??rase a la secci??n de recursos de la Gu??a de servicios de consulta de lactancia materna que recibi?de parte de los servicios de lactancia.?? Puede que experimente congesti??n la primera vez que llegue abrams leche, generalmente entre 3 a 5 d??as despu??s del parto. Erlinda senos pueden volverse sensibles e hinchados. Las compresas fr??as funcionan muy dez para ayudar con las molestias y reducir la hinchaz??n. Mejorar?en un par de d??as. Contin??e amamantando a abrams beb?frecuentemente.?? Llame al Servicio de consulta de lactancia materna del centro m??dico de [facility] al [phone], oprima 1 para programar lakshmi sukumar ambulatoria u oprima 3 y lakshmi consultora le devolver?abrams llamada sandeep mismo d??a o al siguiente si llama despu??s de las 3 p. m.?? Cuidado de los senos para madres que alimentan con biber??n?? [Breast Care for Bottle Feeding Mothers:]?? Puede ocurrir congesti??n char la primera semana postparto. Erlinda senos pueden volverse duros y muy sensibles. Lakshmi compresa fresca de hojas de col janet, crudas y limpias aplicada a los senos y cambiada seg??n las hojas se marchitan ta demostrado ser?til para muchas mujeres. Las bolsas de hieloo bolsas de guisantes congelados tambi??n trabajan dez para aliviar las molestias. La sensibilidadsolo durar?un par de d??as.?? Mant??ngase de espaldas hacia el agua mientras se ducha para reducir la estimulaci??n de los senos.?? Utilice un sost??n ajustado, por ejemplo, un sost??n deportivo.? [ Control:]?? Abrams doctor o partera conversar?con usted sobre m??todos anticonceptivos cuando sea rudy de abran del hospital o en abrams chequeo postparto. Aseg??rese de dejarle saber a abrams m??dico si est?amamantando.? Manejo del dolor:?? [Pain Management:]?? Los calambres despu??s del parto son comunes y aumentan en fuerza con cada beb?que tenga. Si siente calambres dolorosos y no es al??rgica al acetaminofeno (Tylenol) o ibuprofeno (Motrin), puede continuar tomando estos medicamentos beto lo hizo en el hospital. El ibuprofeno tambi??n ayuda con los hermelinda de espalda despu??s de las anestesias epidurales, los hermelinda perineales despu??s de un parto vaginal y hermelinda moderados en la incisi??n despu??s de lakshmi jesus??vibha o cirug??a de ligadura de trompas.?? Si siente distensi??n de gases, especialmente despu??s de lakshmi cirug??a, puede jc un medicamento sin receta llamado simeticona. T??mese estas tabletas masticables 4 veces al d??a seg??n sea necesario e indicado en las instrucciones. Siga movi??ndose. Caminar o mecerse en lakshmi silla ayudar?a pasa r el gas. T?de jengibre hecho con mikaela sera calentado (en vez de agua) y lakshmi bolsa de t??, agitado para disolver la carbonataci??n (burbujas) es lakshmi bebida?til para aliviar un est??asad gaseoso.?? Se??ales de advertencia de un problema que debe notificar a abrams doctor o partera:?? [Warning Signs of a Problem to Notify Your Doctor or [employer] Analyst of:]?? Sangrado vaginal abundante?es cuando??empapa lakshmi toalla sanitaria cada hora??con meka gallo brillante.?? Co??gulos de sangres del robbin??o de un huevo o mayores.?? Lakshmi incisi??n que no zackary.?? Lakshmi temperatura mayor o igual al 100.4?F (38?C), especialmente si est?acompa??ada por cualquiera de los siguientes s??ntomas?dolor al orinar, orina frecuente; dolor moshe de espalda alessandro costado, dolor en el abdomen bajo con un mal olor del flujo vaginal, lakshmi jennifer gallo, dura y caliente en abrams seno.?? Dolor de tuan moshe que no desaparece despu??s de jc acetaminofeno o ibuprofeno.?? Un dolor de tuan que cambia abrams vista, esto incluye el elodia manchas o borroso.?? Dolor al lado derecho de la parte superior del abdomen a lo deedee de la caja tor??cica.?? Dolor en erlinda piernas que es c??lido y sensible al tacto.?? Los s??ntomas de la depresi??n postparto pueden incluir?perdida de inter??s en abrams beb??, sentirse propensa al llanto, dificultad para concentrarse, p??rdida de peso sin apetito, agotamiento, sentirse abrumada o ansiosa, desesperaci??n, pensamientos de lastimarse a usted misma o abrams beb??. Estos s??ntomas son importantes y deben ser discutidos con abrams doctor o partera. La depresi??n postparto puede desarrollarse con el tiempo y necesita atenci??n m??dica inmediata. No sufra en silencio. Tanto en el folleto de??Formando lakshmi heather??beto en la??Gu??a de nuevos comienzos de [employer]??hay unaherramienta de detecci??n utilizada para identificar a las mujeres en riesgo, llamada la [place], la cual usted ya meena?en la oficina antes del parto y otra vez char abrams estad??a en el hospital. Verifique con abrams m??dico de fay a cuatro semanas despu??s de abrams parto y antes de abrams sukumar de postparto, tome esta prueba y comparta erlinda resultados con abrams m??dico. Aseg??rese de mencionar cu alquier puntuaci??n de 10 o m??s.?? Muchas mujeres e incluso, algunas parejas, pueden sentir la tristeza del beb?o baby blues . Pierson es un estado de sentimientos abrumadores y de llanto. Molestias por el parto, cambios hormonales, cansancio, cambios a abrams cuerpo y estilo de jaida son algunas de las cosas que contribuyen a las altasy bajas a las cuales se enfrentan los nuevos padres. No tenga miedo en pedirle ayuda a abrams jennifer, heather o amigos en la casa para poder descansar o tener algunos minutos para usted. Los blues pasar??n r??pidamente.?? Seguridad personal:?? [Personal Safety:]?? Toda persona tiene derecho a sentirse owsuu en abrams casa y a vivir paris de da??os f??sicos o emocionales. Si ta sufrido abuso f??sico o mental en abrams casa, no est?rm. Hay ayuda. Por favor llame ala l??negin de ayuda al o al programa [facility] co [phone].?? You Need to Schedule the Following Appointments Follow Up with??Maria Chanel DO When??In 6 weeks Where: [address] [facility], [address] [facility] [employer] [place] [address]- Discharge Medications JOSE ANGEL HOWE :2000 Visit Date:03/19/2023 Medications: Please continue your medications until treatment is completed or stopped by your provider. Medications not listed below should be discontinued. Discuss any questions related to medications with your provider. What How Much When Instructions Next Dose New Acetaminophen (Tylenol 325 mg oral tablet) 2 tab(s) Oral Every 4 hours as needed for for pain Refills: 3 Pickup at [facility]/pharmacy #2070 Anytime, if needed New Ferrous Sulfate (ferrous sulfate 325 mg oral tablet) 1 tab(s) Oral Daily Refills: 3 Pickup at [facility]/pharmacy #2070 Tomorrow New Ibuprofen (ibuprofen 600 mg oral tablet) 1 tab(s) Oral Every 6 hours as needed for Pain , Mild Refills: 3 Pickup at [facility]/pharmacy #2070 Anytime, if needed New Norethindrone (norethindrone 0.35 mg oral tablet) 1 tab(s) Oral Daily Refills: 4 Pickup at [facility]/pharmacy #2070 As per physician Unchanged Multivitamin, (PNV Plus) Oral Daily Tomorrow Pharmacy Information [facility]/pharmacy #[id number]: [address], [place] [id number] [phone] Test Results Below is a partial list of the most recent Laboratory test results done prior to this discharge. You may have had other tests and procedures not included in this list. Please discuss all test resultswith your provider. Est Creatinine Clearance - 134.37 mL/min (03/20/2023) RBC Available - PT (03/21/2023) RBC Unit ID - [id number] (03/21/2023) CBC (03/22/2023) ???WBC - 5.9 k/mm3???RBC - 3.10 m/mm3???Hgb - 9.0 Gm/dL???Hct - 27.1 %???MCV - 87.4 femtoliters???MCH - 29.0 pg???MCHC - 33.2 g/dL???Platelet Count - 188 k/mm3???RDW-SD - 60.8 femtoliters???MPV - 10.0 femtoliters???Nucleated RBC (Automated) - 0.0 #/100 WBC'S???Abs. NRBC - 0.0 k/mm3 Creatinine (03/20/2023) ???Creatinine-Blood - 0.6 mg/dL???Estimated GFR Creatinine - 132 ML/MIN/1.73 M2 Fibrinogen (03/20/2023) ???Fibrinogen - 426 mg/dL HOLD GEL TUBE (03/19/2023) ???Hold Gel Top - SPECIMEN DISCARDED AFTER 1 WEEK INR (03/20/2023) ???INR - 1.0???Protime (PT) - 10.6 seconds PTT (03/20/2023) ???APTT - 23.5 seconds Type and Screen (03/19/2023) ???Blood Type - A Positive???Antibody Screen - Negative Allergies (NKA means No Known Allergies) NKA Problems Active Problems??(6) Hemorrhage after delivery of fetus?? Iron deficiency anemia of ?? Limited care? Uses Indian as primary spoken language?? Education Materials Below is the list of Educational Leaflet Providered with your Discharge Instructions. Valuables and Belongings I fully understand and agree that [facility] accepts no responsibility for all my personal property including clothing, toilet articles, radios, jewelry, dentures, hearing aids, rings, money, or any other property that is in my possession or is brought to me after admission. I understand certain valuables may be placed in a hospital safe for a short period of time. I understand that the hospital is not liable for loss or damage due to accident, fire, or other natural occurrence while said property is in the safe. I accept full responsibility for any personal property that I keep with me, and will not hold the hospital responsible in case of loss or disappearance. I acknowledge that i have been encouraged to send valuables and belongings home. ?? No Valuables/Belongings: No valuables/belongings present Date for Pt to Sign Valuables/Belongings: 03/19/23 19:53:00 ?? Other Discharge Information ? Pulmonary Rehab Status?? Pulmonary Rehab Discharge Status?? Respiratory Rate: 17 br/min ? Common Emergency Awareness Tips IS IT A STROKE? Act FAST and Check for these signs: FACE Does the face look uneven? ARM Does one arm drift down? SPEECH Does their speech sound strange? TIME Call at any sign of stroke ?? Heart Attack Signs Chest discomfort: Most heart attacks involve discomfort in the center of the chest and lasts more than a few minutes, or goes away and comes back. It can feel like uncomfortable pressure, squeezing, fullness or pain. Discomfort in upper body: Symptoms can include pain or discomfort in one or both arms, back, neck, jaw or stomach. Shortness of breath: With or without discomfort. Other signs: Breaking out in a cold sweat, nausea, or lightheaded. Remember, MINUTES DO MATTER. If you experience any of these heart attack warning signs, call to get immediate medical attention! ?? Smoking can increase your chances of developing chronic health problems and can cause harmful effects to other family members in your house. If you smoke, you are strongly encouraged to quit. Please call [facility] Link at [phone] or [phone] ([phone]) or log in to www.[facility] [employer]org for referrals to smoking cessation programs. ?? 492 Suicide & Crisis Lifeline is available 10/06 if you or someone you know needs to find a reason to keep living. By calling 530 you'll be connected to a skilled, trained counselor at a crisis center in your area. INPATIENT DISCHARGE INSTRUCTIONS SIGNATURE PAGE JOSE ANGEL HOWE Location:[facility] Registration Date and Time:03/19/2023 19:33 EDT Primary Care Physician: Not on Staff, PCP I JOSE ANGEL HOWE, have received the above patient education materials/instructions and have verbalized understanding. If ambulance or transport services are being used I further acknowledge being given a choice of service. ?? If you need to contact me, please call me at this number: . Patient/Deflector Operator Name: Patient/Deflector Operator Signature: Relationship to Patient: Witness Name/Signature: Date: * Marisela Carney: PERFORM Event Display: Care Team Progress Note Authored Date: [id number] Patient: ??JOSE ANGEL HOWE ? Age:??22 Years?Sex:??Female?:??2000?? Subjective cart day??1 assessment for assistance Patient??has little??previous experience Feeding sheet??is adequately filled out Patient??has obtained personal pump Worked with [employer] Assessment/Plan Patient has primarily been formula feeding because she does not have any milk ?? Baby was spittingup formula and not showing any hunger cues.?? Attempted to latch but baby just fell asleep at the breast.?? Helped patient hand express one full spoon and fed it to the baby.?? Put baby skin to skin and she quickly settled.?? Encouraged patient to try again in 30 minutes.?? Patient now understands she has plenty of milk. ?? Basic education discussed with mother/family including:? Positioning infant for optimal feeding Asymmetric latch technique Frequent breast stimulation for initiation and maintenance of milk supply Engorgement prevention and management (page 12 guide) How to know your baby is getting enough (page 14 guide) Hand expression When to use a breast pump Consultation reference guide given to mother with contact information for services and ongoing support as needed.?? OB Summary : 2 Parity: 1 . Baby A - Weight: 3.655 kg Baby A - Date, Time of : 03/20/23 23:34:00 Baby A - Gender: Female Baby A - Complications: Other: 20 sec shoulder; nuchal x3 EGA at Documented Date, Time: 40W 1D Weight at Delivery Baby A - Delivery Type: Vaginal Delivery Complications: Hemorrhage, peripartum or OB History History?(1,0,0,1)? # 1 ?Baby 1 ?Outcome Date:??08/05/2017?Outcome or Result:??Vaginal ?Gest Age:??40 weeks ? Outcome:??Live ? Sex:??Female Active Problem List Active Problem List Hemorrhage after delivery of fetus: (Nursing) Problem added by Discern Expert (03/20/23) Iron deficiency anemia of : (Medical) Limited care: (Medical) : (Medical) : (Obstetric) (12/18/22) Uses Indian as primary spoken language: (Medical) Home Medications Multivitamin, : By Mouth, Daily Medications Medications (6) Active SCHEDULED: (1) Multivitamin Tablet ( Multivitamin Tablet) ??1 tablet, By Mouth, Daily CONTINUOUS: (1) Lactated Ringers (1000 mL) Cont IV 1,000 mL (LR 1,000 mL) ??1,000 mL, IV Infusion, 125 mL/hr PRN: (4) Acetaminophen 325 mg Tablet (Acetaminophen Tablet) ??650 mg, By Mouth, Every 4 hours Calcium Carbonate 500 mg (Calcium 200 mg) Chewable Tablet (Tums 500 mg Tablet) ??1,000 mg 2 tablet,Chew, 3 times a day Docusate Sodium 100 mg Capsule (Docusate Sodium Capsule) ??100 mg 1 capsule, By Mouth, 2 times a day Ibuprofen 800 mg Tablet (Ibuprofen Tablet) ??800 mg, By Mouth, Every 8 hours Patient Care team information Care Team Personnel Name: Not on Staff, PCP Position: [facility] Physician (General Medicine) Member Role: PCP Name: Kia Faulkner RN Position: [facility] OB RN Member Role: Patient Care Provider Name: Melissa Almendarez LPN Position: [facility] OB RN Member Role: OB RN Care Team Related Persons Name: JOSE ANGEL HOWE GIRL Address: [id number] Address: [address] [place] [address] Name: RENÉE MASON Address: home [address] [facility] [place] [address]
--- OUTSIDE RECORDS SUMMARY | 2023-09-13 03:32 | XMS_ITS | Continuity of Care Document ---
Author Name Unknown Organization [facility] Address [address] [place] [id number]- Care Team Providers Care [employer] Designer Name Role Phone Not on Staff, PCP Primary Care Physician Unavail able Encounter [facility] Date(s): 12/08/22 - 01/11/23 [facility] [address] [address]- Attending Physician: Not on Staff, Attending MD Allergies, Adverse Reactions, Alerts No Known Allergies Medications PNV Plus By Mouth, Daily, 0 Refills, Maintenance, 01/10/23 14:24:00 EST, Partial fill upon patient request if the prescription is for a schedule II opioid drug. Start Date: 01/10/23 Status: Ordered Problem List Condition Confirmation Course Effective Dates Status Health St [facility] Informant Anemia Confirmed Active Confirmed Active Social History Social History Type Response Smoking Status Never (less than 100 in lifetime); Exposure to Secondhand Smoke: No; Tobacco user in household: No entered on: 01/10/23 Sex Patient Care team information Care Team Personnel Name: Not on Staff, PCP Position: S Physician (General Medicine) Member Role: PCP
--- OUTSIDE RECORDS SUMMARY | 2023-09-13 03:32 | XMS_ITS | Continuity of Care Document ---
Author Name Unknown Organization [facility] ter Address [address] [place] [id number] Care Team Providers Care Juvenile Justice Officer Name Role Phone Not on Staff, PCP Primary Care Physician Unavail able [place] [facility] [place]): [place] 01/16/[address] [address]- Discharge Disposition: A-D/C Home Attending Physician: Faby Wright MD Admitting Physician: Faby Wright MD Referring Physician: Faby Wright MD Allergies, Adverse Reactions, Alerts No Known Allergies Medications Indomethacin Capsule 50 mg, Capsule, By Mouth, Once, LOADING Dose, REDD, 01/14/23 23:26:00 EST, Stop date 01/14/23 23:26:00 EST Start Date: 01/14/23 Stop Date: 01/15/23 Status: Completed PNV Plus By Mouth, Daily, 0 Refills, Maintenance, 01/10/23 14:24:00 EST, Partial fill upon patient request if the prescription is for a schedule II opioid drug. Start Date: 01/10/23 Status: Ordered Problem List Condition Confirmation Course Effective Dates Status Health St atus Informant Limited care Confirmed Active Iron deficiency anemia of Confirmed Active Uses Azerbaijani as primary spoken language Confirmed Active Confirmed Active Results Orders for Microbiology Reports Name Date Urine Culture 01/15/23 Microbiology Reports TEST:Urine Culture STATUS:Auth (Verified) BODY SITE: SOURCE:URINE COLLECTED DATE/TIME:01/15/23 1:19 AM Urine Culture SPECIMEN DESCRIPTION : URINE CLEAN CATCH/MIDSTREAM SPECIAL REQUESTS : NONE CULTURE : NO GROWTH REPORT STATUS : FINAL 01/16/2023 Vital Signs Most recent to oldest [Reference Range]: 1 2 3 Height 165 cm (01/14/23 6:33 PM) Weight 63 kg (01/14/23 6:33 PM) Oxygen Saturation [94-100 %] 99 % (01/16/23 8:30 AM) 99 % (01/16/23 6:30 AM) 99 % (01/15/23 8:00 PM) Pulse Rate [55-90 bpm] 110 bpm *H* (01/14/23 6:33 PM) Body Mass Index [18.5-24.99 kg/m2] 23.14 kg/m2 (01/14/23 6:33 PM) Blood Pressure [90-138/55-84 mm Hg] 101/52mm Hg (01/16/23 4:05 PM) 124/73mm Hg (01/16/23 8:30 AM) 131/74mm Hg (01/16/23 6:30 AM) Respiratory Rate [16-30 br/min] 19 br/min (01/16/23 4:05 PM) 19 br/min (01/16/23 8:30 AM) 18 br/min (01/16/23 6:41 AM) Temperature [96.8-100.4 DegF] 97.9 DegF (01/16/23 4:05 PM) 98.3 DegF (01/16/23 8:30 AM) 98.1 DegF (01/15/23 8:00 PM) Mode of Delivery (Oxygen) Room air (01/16/23 4:05 PM) Room air (01/16/23 8:30 AM) Room air (01/16/23 6:30 AM) Blood pressure sites Arm, right (01/16/23 4:05 PM) Arm, right (01/16/23 8:30 AM) Arm, left (01/16/23 6:30 AM) Temperature Route Oral (01/16/23 4:05 PM) Oral (01/16/23 8:30 AM) Oral (01/15/23 8:00 PM) Dry Weight 63 kg (01/14/23 6:33 PM) Social History Social History Type Response Smoking Status Never (less than 100 in lifetime); Exposure to Secondhand Smoke: No; Tobacco user in household: No entered on: 01/10/23 Sex History and physical note * Shelli Iniguez MD: PERFORM Event Display: History and Physical Hospital Authored Date: [id number] Patient: ??JOSE ANGEL HOWE ? Age:??22 Years?Sex:??Female?:??2000?? OB Reason for Admission OB Reason for Admission?? No qualifying data available. LMP/EGA/STIVEN Gestational Age (EGA) and STIVEN? * Note: EGA calculated as of 01/14/2023 ?? STIVEN:??03/18/2023?EGA*:??31 weeks ? History?(1,0,0,1)?Method:??Ultrasound??(12/18/2022) History of Present Illness Pt is a??22yo ??@31+0 presenting as a direct admission from the office for concern of labor. She has been feeling increased pelvic pressure for 3 days. She endorses infrequent contractions, every??20 minutes to??an hour.??She denies LOF or discharge. She has had some minimal bleeding today. Denies fever/chills, PEDRAZA, dizziness, changes in vision, CP, SOB, RUQ pain,??pain with urination,UE/LE swelling, calf tenderness. ?? Notably, she has had minimal care. She had labs drawn today. Had anatomy scan done at 27 weeks, which was normal. She recently moved to the area and is living with??her sister. History of term in 2017 @ 40wks following LT induction. Denies any issues in , labor, or PP. Review of Systems Negative except as noted in the HPI. Physical Exam Vitals & Measurements T:??99.0?F ?? FL:??110?? RR:??18?? BP:??117/71?? HT:??165??cm?? WT:??63??kg?? BMI:??23.14?? Constitutional:??Well-developed, no acute distress. Respiratory:??Clear to auscultation, equal bilaterally, no labored breathing.? Cardiovascular:??Regular rate and rhythm, no murmurs.? Abdomen/GI:??Soft, non-tender, non-distended, no guarding or rebound tenderness.??Gravid. Gynecologic:?External Genitalia: normal exam, without lesions, without atrophic changes ??Vagina: normal support, no lesions, no discharge?? Extremities:??No edema or tenderness. Warm and well-perfused.?? Skin:??No rash or jaundice. Normal for ethnicity. Neurological/Psychiatric:??Appearance appropriate, mood and affect stable. ?? OB Exam @19:00 Dilation: 3 Effacement: 30 Station: -5 ?? OB Exam @22:00 Dilation: 4 Effacement: 40 Station: -5 ?? Presentation confirmed by US: vtx ?? FHT: Baseline: 145 Variability: moderate Accelerations: present Decelerations: absent No contractions on toco Assessment/Plan Assessment:??22yo @31+0 admitted for labor. She was??seen in the office today where she complained of increased pelvic pressure and infrequent contractions. Exam in the office was 2/70/-5. Exam on admission was 3/30/-5, made change to 4/40/-5 over the course of??3hrs. Cat 1 tracing. She has minimal vaginal bleeding on exam. GBS pending, GC/CT pending.History of term labor following LT induction. 1h GTT obtained and pending.??Limited care, today was her first OB visit.?? labs pending, drawn today. ?? We discussed the benefits of corticosteroid therapy before 34 weeks in patients with concern for delivery within seven days regardless of membrane status. We discussed that administering steroids forpatients at risk for imminent delivery decreased mortality and morbidity including lower severity, frequency of both of respiratory distress syndrome, intracranial hemorrhage, necrotizing enterocolitis and . We discussed that the benefit of corticosteroid admission is greatest 2-7 days following initial dose. We discussed the risks of hypoglycemia but that adverse outcomes are rare and hypoglycemia is not associated with increased length of hospital stay. Decision made to proceed with betamethasone 12 mg IM x 2 given 24 hours apart. ?? We discussed the role for magnesium sulfate for neuro protection and less frequent subsequentneurological morbidities in neonates exposed prenatally to magnesium sulfate. We discussed that predelivery administration of magnesium sulfate with gestational age <32 weeks reduces the severity and risk of cerebral palsy when given for neurological intent. We discussed that magnesium sulfate it self does not prolong . We discussed that while minor maternal complications may be common(flushing, diaphoresis, nausea, decreased reflexes), serious maternal complications including cardiac arrest, respiratory failure and are rare. ?? Will obtain NICU consult. Plan for continuous monitoring. LDRP team aware. Patient seen and discussed with Dr. Guzman, attending physician ?? Limited care (O09.30):? - first OB visit today - Recently moved to the area, living with sister - ( ) SW consult ?? labor (O60.00):? - Expectant management - steroids - Magnesium for neuroprotection - Continuous EFM and tocometer - Pain control: prn - Regular maternal diet - Re-eval in 2 hrs or PRN - Expected sex: female - PPBC: ?? OB History History?(1,0,0,1)? # 1 ?Baby 1 ?Outcome Date:??08/05/2017?Outcome or Result:??Vaginal ?Gest Age:??40 weeks ? Outcome:??Live ? Sex:??Female Labs Labs Labs & Tests Antibody Screen: Negative (01/14/23) Blood Type: A Positive (01/14/23) Glucose 50 Gm, +60 Minutes: 97 mg/dL (01/14/23) Hct:??25 %??Low (01/14/23) Hgb:??8.2 Gm/dL??Low (01/14/23) Problem List Active Active Problem List Anemia: (Medical) : (Medical) : (Obstetric) (12/18/22) Procedure/Surgical History No qualifying data available. Home [...] Breast cancer; Cancer Plan No Data Found Hospital Progress note * Migdalia Pickard DO: MODIFY, MODIFY, MODIFY, PERFORM Event Display: Progress Note Hospital Authored Date: [id number] Patient: ??JOSE ANGEL HOWE ? Age:??22 Years?Sex:??Female?:??2000?? LMP/EGA/STIVEN Gestational Age (EGA) and STIVEN? * Note: EGA calculated as of 01/15/2023 ?? STIVEN:??03/18/2023?EGA*:??31 weeks 1 day ? History?(1,0,0,1)?Method:??Ultrasound??(12/18/2022) Subjective In room to see patient??for morning rounds. ??Patient continues to have intermittent contractions. Denies vaginal bleeding or leakage of fluid. Endorses good movement. Would like a cervical exam. Review of Systems All systems reviewed and negative except as noted in HPI. OB Assessment FHR 120 moderate variability Accelerations present Decelerations absent ?? Cervix 3-4cm/40/-5, posterior Physical Exam Vitals & Measurements T:??98.5?F ?? HR:??92(Monitored)?? FL:??110?? RR:??18?? BP:??122/82?? HT:??165??cm?? WT:??63??kg?? BMI:??23.14?? OB Intake and Output Intake and Output Results?? This visit (24 hour periods starting at 07:00 EST)? 01/15/23 *?? 01/14/23?? 01/13/23?? Total Summary?Intake mL?? 50?? 50?? --?Output mL?? --?? --?? --?Fluid Balance ?? 50?? 50?? --?? Intake (1)?penicillin G potassium mL?? 50?? 50?? --?Total?? 50?? 50?? --?? Output (0)? Counts (0)? * This column has not completed the indicated time period.?? Assessment/Plan Assessment:??22-year-old Azerbaijani speaking??-0-0-1 at 31 weeks and 1 day??admitted for??pretermlabor.?Patient continues to have intermittent contractions.?Category 1 tracing.?Cervical??exam unchanged??from yesterday evening, does not feel like a laboring cervix.??GBS status unknown receiving penicillin for prophylaxis.?She received magnesium bolus and the first dose of steroids.?Given she continues to feel uncomfortable will??continue penicillin at this time,??continue fetalmonitoring,??and repeat cervical exam as needed.??Will continue tocolysis??until??2nd dose of steroids given.? labor (O60.00):? Continuous monitoring Status post first dose of betamethasone Continue penicillin and indomethacin Status post NICU??consult GC CT, GBS and urine cultures results are pending Repeat cervical exams as needed. ?? Anemia (D64.9):? Iron studies,??B12, folate??levels ordered?? 2 units PRBCs on hold ?? Uses Azerbaijani as primary spoken language (Z78.9):? social media marketer used for entire encounter ? Patient discussed with and seen by attending, Dr. Gomez. OB History History?(1,0,0,1)? # 1 ?Baby 1 ?Outcome Date:??08/05/2017?Outcome or Result:??Vaginal ?Gest Age:??40 weeks ? Outcome:??Live ? Sex:??Female Active Problem List Active Problem List Anemia: (Medical) : (Medical) : (Obstetric) (12/18/22) Medications Medications (6) Active SCHEDULED: (3) Betamethasone Suspension 6 mg/mL Inj (Betamethasone Suspension Inj) ??12 mg 2 mL, Intramuscular, Every 24 hours Indomethacin 25 mg Capsule (Indomethacin Capsule) ??25 mg, By Mouth, Every 6 hours Penicillin G Potassium 3 Million Units / 50 mL D5%W (Penicillin G POT IVPB) ??3 million_units 50 mL, IVPB, Every 4 hours CONTINUOUS: (2) Lactated Ringers (1000 mL) Cont IV 1,000 mL (Lactated Ringers 1,000 mL) ??1,000 mL, IV Infusion, 125 mL/hr Magnesium Sulfate 20 Gm in 500 mL Premix 20 Gm ??20 Gm 500 mL, IV Infusion PRN: (1) Ondansetron 2mg/mL Inj (2mL Vial) (Ondansetron Inj) ??4 mg, IV Push, Every 8 hours Allergies NKA * Jason BAIRES [OB], Shelli Guillen: PERFORM Event Display: Progress Note Hospital Authored Date: ?Attending Attestation:??I have seen and evaluated this patient. ??I have discussed the caseand its management with the resident and agree with the findings and plan as documented above in the resident???s note. ? * Al BAIRES, Niharika Yarbrough: PERFORM Event Display: Progress Note Hospital Authored Date: Patient: ??JOSE ANGEL HOWE ? Age:??22 Years?Sex:??Female?:??2000?? LMP/EGA/STIVEN Gestational Age (EGA) and STIVEN? * Note: EGA calculated as of 01/15/2023 ?? STIVEN:??03/18/2023?EGA*:??31 weeks 1 day ? History?(1,0,0,1)?Method:??Ultrasound??(12/18/2022) Subjective Called to patient room for cervical exam. Per RN, patient calling out for a provider stating her abdomen feels rock hard . With video barrel roller at bedside, patient denies having contraction pains,pressure, or urge to push. Patient reports being able to sleep comfortably overnight and was only re questing another??cervical check because of spotting. Physical Exam Vitals & Measurements T:??99.0?F ?? FL:??110?? RR:??18?? BP:??117/71?? HT:??165??cm?? WT:??63??kg?? BMI:??23.14?? General: Comfortable appearing Respiratory: Unlabored respirations Tocometer: No contractions on tocometer Assessment/Plan Assessment:??22 yo @ 31+1 admitted??for concern of labor. She has received her first dose of corticosteroid steroids for lung protection, a magnesium sulfate bolus??for neuroprotection,??Indocin for tocolysis in hopes to achieve steroid completion, and penicillin??for GBS prophylaxis. She is s/p NICU consult. She has been on??continuous??external monitoring and??tocometry overnight. heart tracing has been category I and contractions have ceased following Indocin administration. Discussed with the patient that cervical exams can result in??uterine irritability and contractions, as well as,??an increased??risk of infection and that we do not serial exams unless clinically indicated. We discussed that given she is comfortable without painful contractionsor pressure and the spotting is unchanged from when she was admitted that we can defer an exam at this time. Counseled patient that if she begins to have painful contractions, increasing pressure, anurge to push, increase amount of bleeding, or leaking of fluid that would be an indication for re-examination. Patient agreed with plan. ?? OB History History?(1,0,0,1)? # 1 ?Baby 1 ?Outcome Date:??08/05/2017?Outcome or Result:??Vaginal ?Gest Age:??40 weeks ? Outcome:??Live ? Sex:??Female Active Problem List Active Problem List Anemia: (Medical) : (Medical) : (Obstetric) (12/18/22) Medications Medications (6) Active SCHEDULED: (3) Betamethasone Suspension 6 mg/mL Inj (Betamethasone Suspension Inj) ??12 mg 2 mL, Intramuscular, Every 24 hours Indomethacin 25 mg Capsule (Indomethacin Capsule) ??25 mg, By Mouth, Every 6 hours Penicillin G Potassium 3 Million Units / 50 mL D5%W (Penicillin G POT IVPB) ??3 million_units 50 mL, IVPB, Every 4 hours CONTINUOUS: (2) Lactated Ringers (1000 mL) Cont IV 1,000 mL (Lactated Ringers 1,000 mL) ??1,000 mL, IV Infusion, 125 mL/hr Magnesium Sulfate 20 Gm in 500 mL Premix 20 Gm ??20 Gm 500 mL, IV Infusion PRN: (1) Ondansetron 2mg/mL Inj (2mL Vial) (Ondansetron Inj) ??4 mg, IV Push, Every 8 hours Allergies NKA * Shelli Iniguez MD: PERFORM Event Display: Progress Note Hospital Authored Date: Patient: ??JOSE ANGEL HOWE ? Age:??22 Years?Sex:??Female?:??2000?? LMP/EGA/STIVEN Gestational Age (EGA) and STIVEN? * Note: EGA calculated as of 01/15/2023 ?? STIVEN:??03/18/2023?EGA*:??31 weeks 1 day ? History?(1,0,0,1)?Method:??Ultrasound??(12/18/2022) Subjective Pt requesting recheck as she has had some bleeding on wiping. Feels more pressure OB Assessment Cervical Cervical Dilatation4 cm Cervical Rujkhbcece25% Station-4 Physical Exam Vitals & Measurements T:??99.0?F ?? FL:??110?? RR:??18?? BP:??117/71?? HT:??165??cm?? WT:??63??kg?? BMI:??23.14?? Review of Systems Negative except as noted in the HPI. Assessment/Plan Assessment:??22yo @31+0 admitted for labor.??Repeat cervical exam /-4. She has minimal vaginal bleeding on exam. s/p 1 dose of??steroids.??Initiated on??Magnesium for neuroprotection. On??PCN for GBS unknown. GBS pending, GC/CT pending. Cat 1 tracing. ?? Limited care (O09.30):? - first OB visit today - Recently moved to the area, living with sister - ( ) SW consult ?? labor (O60.00):? - Expectant management - steroids - Magnesium for neuroprotection - Continuous EFM and tocometer - Pain control: prn - Regular maternal diet - Re-eval in 2 hrs or PRN - Expected sex: female - PPBC: ?? OB History History?(1,0,0,1)? # 1 ?Baby 1 ?Outcome Date:??08/05/2017?Outcome or Result:??Vaginal ?Gest Age:??40 weeks ? Outcome:??Live ? Sex:??Female Active Problem List Active Problem List Anemia: (Medical) : (Medical) : (Obstetric) (12/18/22) Medications Medications (6) Active SCHEDULED: (3) Betamethasone Suspension 6 mg/mL Inj (Betamethasone Suspension Inj) ??12 mg 2 mL, Intramuscular, Every 24 hours Indomethacin 25 mg Capsule (Indomethacin Capsule) ??25 mg, By Mouth, Every 6 hours Penicillin G Potassium 3 Million Units / 50 mL D5%W (Penicillin G POT IVPB) ??3 million_units 50 mL, IVPB, Every 4 hours CONTINUOUS: (2) Lactated Ringers (1000 mL) Cont IV 1,000 mL (Lactated Ringers 1,000 mL) ??1,000 mL, IV Infusion, 125 mL/hr Magnesium Sulfate 20 Gm in 500 mL Premix 20 Gm ??20 Gm 500 mL, IV Infusion PRN: (1) Ondansetron 2mg/mL Inj (2mL Vial) (Ondansetron Inj) ??4 mg, IV Push, Every 8 hours US Unspecified body region * Event Display: PDC Other Ultrasound * Event Display: PDC Other Ultrasound Authored Date: [id number] OBSTETRICS REPORT PATIENT INFO: CMRN: [id number] BMRN: [id number] : [birth year] (22 yrs)(F) Name: JOSE ANGEL Visit Date: 01/16/2023 03:24 pm CARLEY PERFORMED BY: Performed By: Brenda Angulo RDMS Attending: Levi Arnold MD Referred By: Faby Wright [facility]-PAT[facility] INDICATIONS: Vaginal bleeding N93.9 EVALUATION: Num Of Fetuses: 1 Heart Rate(bpm): 141 Cardiac Activity: Present Presentation: Cephalic Placenta: Anterior Amniotic Fluid MARRY FV: Within normal limits MARRY Sum(cm) Largest Pocket(cm) 8.1 3.3 RUQ(cm) RLQ(cm) LUQ(cm) LLQ(cm) 3.3 1.9 1.6 1.3 BIOMETRY: BPD: 77.4 mm G.Age: 31w 0d 32 % HC: 289.3 mm G.Age: 31w 6d 28 % AC: 296.6 mm G.Age: 33w 4d 96 % FL: 58.3 mm G.Age: 30w 3d 17 % CI: 72.43 % 70 - 86 FL/HC: 20.2 % 19.3 - 21.3 HC/AC: 0.98 0.96 - 1.17 FL/BPD: 75.3 % 71 - 87 FL/AC: 19.7 % 20 - 24 Est. FW: 1947 gm 4 lb 5 oz 73 % GESTATIONAL AGE: LMP: 36w 2d Date: 05/07/22 STIVEN: 02/11/23 Clinical STIVEN: 31w 2d STIVEN: 03/18/23 U/S Today: 31w 5d STIVEN: 03/15/23 Best: 31w 2d Det. By: Clinical STIVEN STIVEN: 03/18/23 CERVIX UTERUS ADNEXA: Cervix Not well seen COMMENTS: The estimated weight is within normal limits. The amniotic fluid volume is low normal. No evidence of placental abruption seen. Levi Arnold MD Electronically Signed Final Report 01/16/2023 04:35 pm * Event Display: PDC Other Ultrasound Authored Date: Please click on pdf link to open report Note * Julee Shi RN: PERFORM Event Display: Discharge/Transfer Note Hospital Authored Date: Nursing Discharge Note Entered On: 01/16/2023 20:10 EST Performed On: 01/16/2023 20:09 EST by Julee Shi RN Nursing Discharge Note 2 Discharge Time : 01/16/2023 20:07 EST Discharge Level of Care at Discharge : Home/Assisted/Foster Care Patient Left Unit Via : Ambulatory Patient Accompanied Off Unit with : Significant other DC Instructions Provided & Signed by Pt : Yes Patient Understands D/C Instructions : Yes Patient Instructions Discharge Signed : Yes Did Pt have Specialty Bed or Wound Vac : No Julee Shi RN - 01/16/2023 20:09 EST * Migdalia Pickard DO: MODIFY, PERFORM Event Display: Discharge/Transfer Note Hospital Authored Date: [id number] Patient: ??JOSE ANGEL HOWE ? Age:??22 Years?Sex:??Female?:??2000?? Admit Date Admission Date: 01/14/2023 Discharge Date 01/16/2023 OB Reason for Admission OB Reason for Admission Reason for admission: labor [facility] Hospital Course 22yo @31+0 admitted for labor. Exam on admission was 02/14/-, made change to /-5 over the course of??3hrs. She was started on steroids and magnesium for neuroprotection.?She received 2 doses of betamethasone. ??She was found to have iron deficiency anemia during this admission and received an iron infusion.?? She also was treated for a yeast infection.?? Her contractions??resolved and her cervix was unchanged on??day of discharge. ??Plan to follow-up with the [facility] for care. Objective/Physical Exam on Day of Discharge Vitals & Measurements T:??98.3?F ?? HR:??93(Monitored)?? FL:??110?? RR:??19?? BP:??124/73?? SpO2:??99%?? HT:??165??cm?? WT:??63??kg?? BMI:??23.14?? General: Appears well, no acute distress. Lungs: Respirations unlabored. ?? Cervix /-. Assessment/Plan/Discharge Diagnosis Assessment:??22-year-old -0-0-1 at 31 weeks and??2 days??admitted for concern for?? labor.?She has received 2 doses of betamethasone and her indomethacin??was stopped this morning.?She has not had any??contractions today.?However??patient is concerned about continued vaginal spotting??during admission.?We discussed??that this is likely secondary to cervical exams.?Patient is concerned about the placenta??and would like an ultrasound.?Advised that??vaginal bleeding could be??a sign of placental abruption,??however her tracing has been reassuring, she does not haveabdominal pain??and the vaginal bleeding has been spotting with wiping.?However given her concern,??an ultrasound??can be performed prior to discharge thus an??ultrasound for placental evaluation has been ordered.?Her cervical exam is unchanged.??She was counseled regarding strict precautionsto return to [facility]??for contractions, leakage of fluid, vaginal bleeding??or decreased movement. ?? labor (O60.00):? Discharge teaching performed Precautions given to return Follow up with [facility] for remainder of care, communication sent to on- call provider s/p betamethasone 01/14-01/15 ?? Limited care (O09.30):? 1st OB visit at 31 weeks ?? Vaginal bleeding (N93.9):? Pending ultrasound for placenta evaluation ?? Iron deficiency anemia of (O99.019):? s/p iron infusion ?? Uses Azerbaijani as primary spoken language (Z78.9):? social media marketer used for entire encounter ? Patient discussed with and seen by attending, Dr. Hernandez. Future Appointments Follow up in 1 week with [facility] Routine care for remainder of Discharge Medications ???Multivitamin, (PNV Plus) [1]??PDC Other Ultrasound; Levi Arnold MD 01/16/2023 16:35 EST * Migdalia Pickard DO: PERFORM Event Display: Discharge/Transfer Note Hospital Authored Date: COMMENTS: ?The estimated weight is within normal limits. ??The amniotic fluid volume is low normal. ??No evidence of placental abruption seen. [1] ?? Ultrasound within normal limits, reviewed with patient. Patient continues to feel well, no contractions. Stable for discharge home. * Rosalinda Sprague RN: PERFORM Event Display: Patient Education/Instruction Authored Date: [id number] Inpatient Adult Discharge Instructions [address] [address] Name: JOSE ANGEL HOWE : 2000 Visit: 01/14/2023 17:59:00 Current Date: 01/16/2023 18:08 Account: [id number] Inpatient Adult Discharge Instructions We would like [...] and their families. Surveys are administered by [employer]. ?? If further treatment with your primary care physician or another doctor is recommended, it is important for you to keep the appointment. Call your primary care physician or return to the Emergency Department immediately if your condition worsens, fails to improve, or new symptoms develop. If you need to find a doctor, you can call [facility] for a referral at [phone] or toll free at [phone]) or log in to [email or web address].. ?? You can view and manage your care through the patient portal or by using a health care bella of your choosing. [email or web address] is a website that allows you to securely view your medical information including your hospital discharge summary, office visit summaries, medications and follow-up visits. You can also request appointments, renew medications, and request access to your medical information using a health care bella of your choosing, or just ask a question. You can enroll at [email or web address] or register during your next office visit. You have been discharged from [facility], Patient Care Unit: [facility]. If you have any questions regarding these instructions after you leave, please call us and we will be happy to assist you. [facility] Your Care Team Attending Physician Ardiana BAIRES, Faby Salas Consulting Providers Partha BAIRES, Nica Ponce Discharging Providers Migdalia Pickard DO Reason for Admission labor Your Diagnosis labor Limited care Uses Azerbaijani as primary spoken language Vaginal bleeding Iron deficiency anemia of Tests Performed Below is a partial list of the tests performed during your hospitalization. You may have had other tests and procedures not included in this list. Please discuss all test results with your provider. B12 Vitamin Level CBC Ferritin Folate Level GTT 1 Hr Iron + Iron Binding Capacity Transferrin Type and Screen Primary Care Provider Not on Staff, PCP Advance Directive Health Care Proxy on File Yes - Health Care Proxy Discharge Vitals Temperature: 97.9 DegF Height: 165 cm Pulse Rate:??110 bpm??High Weight: 63 kg Respiratory Rate: 19 br/min Body Mass Index: 23.14 kg/m2 Systolic Blood Pressure: 101 mm Hg Body surface area: 1.7 Diastolic Blood Pressure:??52 mm Hg??Low ?? Oxygen Saturation: 99 % ?? Studies Pending All tests and labs ordered during this hospital stay have been completed unless listed below. Please discuss all pending results with your provider listed above in these instructions. ?? COVID-19 (2019 Novel Coronavirus) PCR RBCs on Hold What to do next Instructions From Your Doctor Discharge Orders Discharge Medications JOSE ANGEL HOWE :2000 Visit Date:01/14/2023 Medications: Please continue your medications until treatment is completed or stopped by your provider. Medications not listed below should be discontinued. Discuss any questions related to medications with your provider. What How Much When Instructions Next Dose Unchanged Multivitamin, (PNV Plus) Daily Test Results Below is a partial list of the most recent Laboratory test results done prior to this discharge. You may have had other tests and procedures not included in this list. Please discuss all test resultswith your provider. RBC Available - XM (01/15/2023) RBC Unit ID - [id number] (01/15/2023) B12 Vitamin Level (01/15/2023) ???Vitamin B12 Level - 609 pg/mL CBC (01/14/2023) ???WBC - 9.4 k/mm3???RBC - 3.09 m/mm3???Hgb - 8.2 Gm/dL???Hct - 25.0 %???MCV - 80.9 femtoliters???MCH - 26.5 pg???MCHC - 32.8 g/dL???Platelet Count - 234 k/mm3???RDW-SD - 38.2 femtoliters???MPV - 10.1 femtoliters???Nucleated RBC (Automated) - 0.0 #/100 WBC'S???Abs. NRBC - 0.0 k/mm3 Ferritin (01/15/2023) ???Ferritin Level - 6 ng/mL Folate Level (01/15/2023) ???Folic Acid Level - 22.4 ng/mL GTT 1 Hr (01/14/2023) ???Glucose 50 Gm, +60 Minutes - 97 mg/dL Iron + Iron Binding Capacity (01/15/2023) ???Iron Level - 28 mcg/dL???Iron Binding Capacity, Unsaturated - 515 mcg/dL???Iron Binding Capacity, Estimated Total - 543 mcg/dL???% Iron Saturation - 5 % Transferrin (01/15/2023) ???Transferrin - 448 mg/dL Type and Screen (01/14/2023) ???Blood Type - A Positive???Antibody Screen - Negative Allergies (NKA means No Known Allergies) NKA Problems Active Problems??(5) Iron deficiency anemia of ?? Limited care? Uses Azerbaijani as primary spoken language?? Education Materials Below is the list of Educational Leaflet Providered with your Discharge Instructions. Premature Labor?? Valuables and Belongings I fully understand and agree that [facility] accepts no responsibility for all my personal [...] present Date for Pt to Sign Valuables/Belongings: 01/14/23 18:55:00 ?? Other Discharge Information ? Pulmonary Rehab Status?? Pulmonary Rehab Discharge Status?? Respiratory Rate: 19 br/min ? Common Emergency Awareness Tips IS [...] are strongly encouraged to quit. Please call [facility] [employer] Link at [phone] or [phone] Study Course (1377) or log in to [email or web address] for referrals to smoking cessation programs. ?? The National Suicide Prevention Hotline is available 10/06 if you or someone you know needs to find a reason to keep living. By calling 5-628-228-Ummitech (8722) you'll be connected to a skilled, trained counselor at a crisis center in your area. INPATIENT DISCHARGE INSTRUCTIONS SIGNATURE PAGE JOSE ANGEL HOWE Location:[facility] Registration Date and Time:01/14/2023 17:59 EST Primary Care Physician: Not on Staff, PCP I JOSE ANGEL HOWE, have received the above patient education materials/instructions and have verbalized understanding. If ambulance or transport services are being used I further acknowledge being given a choice of service. ?? If you need to contact me, please call me at this number: . Patient/Film Process Operator Name: Patient/Film Process Operator Signature: Relationship to Patient: Witness Name/Signature: Date: * Rosalinda Sprague RN: PERFORM Event Display: Patient Education Leaflets Authored Date: [id number] Premature Labor ?? [id number] Trabajo de parto prematuro [Premature Labor] El trabajo de parto prematuro (tambi??n llamado ???trabajo de parto pret??rmino?? ) es cuando se tienen s??ntomas de trabajo de parto antes de las 37 semanas de embarazo (es decir, 3 semanas antes louise fecha posible de parto). Un trabajo de parto prematuro puede provocar un parto prematuro. Los beb??s necesitan un m??leobardo de 37 semanas de embarazo para que todos los ??rganos se desarrollen normalmente. Cuanto m??s anticipado sea el parto, mayor es el riesgo para el beb??. En la mayor??a de los casos, se desconoce la causa del trabajo de parto prematuro. Sin embargo, ciertos factores pueden hacer que lissett problema sea m??s probable. Estos incluyen: ??? Historial de trabajos de parto prematuros en otros embarazos ??? Fumar ??? Abuso de alcohol u otras sustancias ??? Peso bajo o aumento de peso antes del embarazo ??? Per??odo corto de tiempo entre un embarazo y otro ??? Estar embarazada con mellizos, trillizos o m??s ??? Historial de cierto tipo de cirug??as en el robbie uterino o en el ??tero ??? Tener un robbie uterino corto ??? Ciertas infecciones Existen muchos otros factores de riesgo. P??fili a mathews proveedor de atenci??n m??dica que le ayude aentender los factores de riesgo espec??ficos en mathews kirill, y luego femi qu?? puede hacer para controlarlos o reducirlos. Las contracciones son el primer signo del trabajo de parto prematuro. Las contracciones son diferentes a los calambres abdominales (c??licos). En general, lakshmi contracci??n es dolorosa y el abdomen seendurece. Puede durar desde unos pocos segundos hasta unos minutos. Algunas mujeres s??lo tienen lakshmi sensaci??n de presi??n en el abdomen, los muslos, el recto o la vagina. Algunas pueden sentir que el ??tero se endurece sin experimentar dolor ni presi??n. Otras sienten dolor jose en la parte baja de la espalda que se extiende hacia carlito hasta el abdomen. El trabajo de parto prematuro se puede tratar con medicamentos. Es posible que se necesite lakshmi hospitalizaci??n. Si se puede suspender el trabajo de parto exitosamente y tanto usted beto mathews beb?? est??n sanos, puede ser rudy de abran y continuar los cuidados en mathews hogar. Cuidados en el hogar ??? H??gale cualquier pregunta que tenga a mathews proveedor de atenci??n m??dica. Aseg??rese de entender c??mo cuidarse en casa. Adem??s, siga todas las recomendaciones que le den praful proveedores de atenci??n m??dica. ??? Conozca las se??ales del trabajo de parto prematuro. Vigile esas se??ales cuando est?? en casa. ??? Limite o restrinja las actividades beto le aconsejen. Bernice pu tiago incluir dejar de hacer ciertas actividades f??sicas y reducir praful horas de trabajo. ??? Evite hacer actividades extenuantes. Pida ayuda a praful familiares y amigos con las tareas y apoyo en mathews casa, seg??n sea necesario. ??? No fume, no uzair alcohol ni consuma otras sustancias perjudiciales. ??? [place] medidas para reducir el estr??s. ??? Informe cualquier s??ntoma inusual a mathews m??dico. ?? Cuidados de seguimiento Shilpi un seguimiento con mahtews proveedor de atenci??n m??dica o beto lo indiquen. Es posible que se necesiten visitas semanales con mathews proveedor. ?? Cu??ndo buscar consejo m??dico Llame de inmediato a mathews proveedor de atenci??n m??dica si algo de lo siguiente ocurre: ??? Contracciones regulares o frecuentes, dolorosas o no ??? Presi??n en la pelvis ??? Presi??n en la parte bajadel vientre o c??licos estomacales leves con o sin diarrea ??? Dolor en la parte baja de la espaldade poca intensidad janette jose ??? Chorros o salida lenta de agua desde la vagina ??? Sangrado vaginal ??? Cambios en el flujo vaginal (hortensia, con mucosidad o sanguinolento) ??? Cualquier sangrado vaginal ??? Disminuci??n en los movimientos del beb? Last Reviewed Date: 2021 ?? [id number] [employer]. Todos los derechos reservados. Esta informaci??n no pretende sustituir la atenci??n m??dica profesional. S??lo mathews m??dico puede diagnosticar y tratar un problema de shad. ?? Patient Care team information Care Team Personnel Name: Not on Staff, PCP Position: [facility] Physician (General Medicine) Member Role: PCP Name: Kimi Hurley RN Position: [facility] OB RN Member Role: Patient Care Provider Care Team Related Persons Name: ISABELLA RENÉE Address: [address] [place] [address]
--- OUTSIDE RECORDS SUMMARY | 2023-09-13 03:32 | XMS_ITS | Continuity of Care Document ---
Author Name Unknown Organization [facility] ter Address [address] [place] [id number] Care Team Providers Care Recoater Name Role Phone Not on Staff, PCP Primary Care Physician Unavail able Encounter [facility] Date(s): 01/18/23 - 01/19/[address] [address]- Discharge Disposition: A-D/C Home Attending Physician: Marti Dean MD Admitting Physician: Marti Dean MD Referring Physician: Marti Dean MD Allergies, Adverse Reactions, Alerts No Known Allergies Medications PNV Plus By Mouth, Daily, 0 Refills, Maintenance, 01/10/23 14:24:00 EST, Partial fill upon patient request if the prescription is for a schedule II opioid drug. Start Date: 01/10/23 Status: Ordered Problem List Condition Confirmation Course Effective Dates Status Health [facility] Informant Limited care Confirmed Active Iron deficiency anemia of Confirmed Active Uses Montenegrin as primary spoken language Confirmed Active Confirmed Active Vital Signs Most recent to oldest [Reference Range]: 1 2 3 Height 165 cm (01/18/23 6:26 PM) Weight 63 kg (01/18/23 6:26 PM) Oxygen Saturation [94-100 %] 100 % (01/19/23 9:15 AM) 96 % (01/19/23 12:00 AM) 100 % (01/18/23 1:37 PM) Pulse Rate [55-90 bpm] 94 bpm *H* (01/18/23 6:26 PM) Body Mass Index [18.5-24.99 kg/m2] 23.14 kg/m2 (01/18/23 6:26 PM) Blood Pressure [90-138/55-84 mm Hg] 126/76mm Hg (01/19/23 9:15 AM) 110/55mm Hg (01/19/23 12:00 AM) 118/65mm Hg (01/18/23 6:26 PM) Respiratory Rate [16-30 br/min] 18 br/min (01/18/23 6:26 PM) 18 br/min (01/18/23 1:37 PM) Temperature [96.8-100.4 DegF] 98.3 DegF (01/19/23 9:15 AM) 98.8 DegF (01/18/23 6:26 PM) Mode of Delivery (Oxygen) Room air (01/18/23 1:37 PM) Blood pressure sites Arm, left (01/18/23 6:26 PM) Arm, right (01/18/23 1:37 PM) Temperature Route Oral (01/19/23 9:15 AM) Oral (01/18/23 6:26 PM) Dry Weight 63 kg (01/18/23 6:26 PM) Social History Social History Type Response Smoking Status Never (less than 100 in lifetime); Exposure to Secondhand Smoke: No; Tobacco user in household: No entered on: 01/10/23 Sex History and physical note * Evelyn Nelson CNM Head: PERFORM Event Display: History and Physical Hospital Authored Date: [id number] Patient: ??ASHLI HOWE ? Age:??22 Years?Sex:??Female?:??2000?? OB Reason for Admission OB Reason for Admission?? No qualifying data available. LMP/EGA/STIVEN Gestational Age (EGA) and STIVEN? * Note: EGA calculated as of 01/18/2023 ?? STIVEN:??03/18/2023?EGA*:??31 weeks 4 days ? History?(1,0,0,1)?Method:??Ultrasound??(12/18/2022) History of Present Illness [facility] c/o continued bloody mucous vaginal discharge on wiping, more pelvic pressure, and feeling my stomach get tight more often than before. She was recently admitted for concern of labor, and was sent home when she was found not to be making cervical change, and not feeling contractions. She received complete course of steroids for maturity concerns during that admission. Also had NICU consult at that time.??Admits she hasn't had too much to drink today - a little water this morning. ?? Endorses normal FM. No gaby VB, no LOF. ?? Review of Systems CONSTITUTIONAL ? No unexplained weight change, no fever, no chills, no weakness or fatigue PSYCHIATRIC ? No depression, no??anxiety NEUROLOGIC ? No headache, no visual disturbances, no dizziness, no weakness, no loss of taste or smell RESPIRATORY ?No shortness of breath, no wheeze, no cough CARDIOVASCULAR ? No chest pain or pressure, no palpitations GASTROINTESTINAL? No nausea, no diarrhea, no vomiting, no abdominal pain GYNECOLOGIC ?+ abnormal discharge, no itching, no odor, no lesions, no gaby vaginal bleeding OBSTETRIC ? + normal movement,??+ contractions,??no loss of fluid URINARY? No dysuria, no frequency, no urgency, no incomplete emptying, no??hematuria, no incontinence Physical Exam Vitals & Measurements HR:??95(Monitored)?? RR:??18?? BP:??112/64?? SpO2:??100%?? CONSTITUTIONAL ?NAD, well-nourished, appears stated age PSYCHIATRIC ? Normal affect; no depression, no anxiety NEUROLOGIC ? Alert and oriented CARDIOVASCULAR ? Heart RRR, no murmur RESPIRATORY ? Lungs: CTAB INTEGUMENTARY ?No rashes, no??lesions?? GASTROINTESTINAL? Abdomen: gravid, nontender, no masses? No hepatomegaly, no splenomegaly GYNECOLOGIC ? External Genitalia: no lesions? Vagina: Normal exam, normal support, no discharge? Cervix:??3.5/30/-5/firm/posterior --> 4/50/-4/firm/mid position after 2 hours; vertex ?? U/A pending OB Assessment Cervical Cervical Dilatation4 cm Cervical Slxwvqprzw68% Station-5 Assessment/Plan labor (O60.00):? Category I FHT U/A pending Small, but appreciable change in exam over 2 hours with prior admission for PTL concerns Start IV fluids now, admit for longer period of observation Steroid complete, NICU consult already done Report given to OB team, who will assume care of patient??when she arrives to Pod B ?? Uses Montenegrin as primary spoken language (Z78.9):? Care provided in Montenegrin by this provider ?? OB History History?(1,0,0,1)? # 1 ?Baby 1 ?Outcome Date:??08/05/2017?Outcome or Result:??Vaginal ?Gest Age:??40 weeks ? Outcome:??Live ? Sex:??Female Labs Labs Labs & Tests Antibody Screen: Negative (01/14/23) Blood Type: A Positive (01/14/23) Chlamydia Trachomatis Amplified Probe: NEGATIVE (01/14/23) Glucose 50 Gm, +60 Minutes: 97 mg/dL (01/14/23) Hct:??25 %??Low (01/14/23) Hemoglobinopathy Interpretation: Normal hemoglobins, with anemia. (01/14/23) Hepatitis B Surface Antigen: NEGATIVE (01/14/23) Hepatitis C Ab: NEGATIVE (01/14/23) Hgb:??8.2 Gm/dL??Low (01/14/23) HIV 4th Generation Ab-Ag Result: NEGATIVE (01/14/23) RPR Titer Result: NOT INDICATED (01/14/23) Rubella IgG Ab: POSITIVE (01/14/23) Syphilis Screen by DUTCH: NEGATIVE (01/14/23) Urine Culture: Urine Culture (01/15/23) Problem List Active Active Problem List Iron deficiency anemia of : (Medical) Limited care: (Medical) : (Medical) : (Obstetric) (12/18/22) Uses Montenegrin as primary spoken language: (Medical) Procedure/Surgical History [...] Diabetes mellitus Aunt: Breast cancer; Cancer Plan OB Plan Feeding Plan: Breast milk (01/18/23) Patient Requests: Girl (01/18/23) Hospital Progress note * Sulma Traylor DO: PERFORM Event Display: Progress Note Hospital Authored Date: [id number] Patient: ??ASHLI HOWE ? Age:??22 Years?Sex:??Female?:??2000?? LMP/EGA/STIVEN Gestational Age (EGA) and STIVEN? * Note: EGA calculated as of 01/18/2023 ?? STIVEN:??03/18/2023?EGA*:??31 weeks 4 days ? History?(1,0,0,1)?Method:??Ultrasound??(12/18/2022) Subjective In to meet patient and assume care. She is feeling intermittent contractions but is overall comfortable when they are not happening. She denies leaking fluid or bright red bleeding, has some brown discharge when she wipes. Feels good FM. Review of Systems All systems reviewed and negative except as noted above in HPI. OB Assessment Baby A Membrane Status:Intact Cervical Cervical Dilatation4 cm Cervical Blkvfauowh48% Station-4 Physical Exam Vitals & Measurements T:??98.8?F ?? HR:??95(Monitored)?? SC:??94?? RR:??18?? BP:??118/65?? SpO2:??100%?? HT:??165??cm?? WT:??63??kg?? BMI:??23.14?? Constitutional:??Normal affect, no acute distress, well-developed. Pulmonary:??Normal work of breathing.?? Cardiovascular:??Regular rate.? Abdomen/GI:??Soft, non-tender, and non-distended, no guarding, no rebound tenderness.?? Extremities:??No clubbing, cyanosis or edema present.?? Skin:??No rash or jaundice. Normal for ethnicity. Neurological/Psychiatric:??Appearance appropriate, mood and affect stable. SVE: /-4, medium consistency Assessment/Plan Assessment:??22-year-old at 31 weeks and??4 days admitted for concern for labor. She was admitted on 01/14 for PTL and was discharged 01/16 after making no further cervical change. She madea small amount of change since her discharge when seen in [facility] earlier, so she is admitted for observation and rule out PTL. She has received 2 doses of betamethasone.??Also had spotting during previous admission, this has largely resolved and is just now brown discharge, however this may have beendue to yeast infection which she has been treated for.??She??is mckinley intermittently but is overall comfortable, Cat??1 tracing. Exam unchanged from admission, so will hold off on mag at this time. GBS neg so no need for??PCN.??Will continue to monitor??and recheck cervix if she becomes more uncomfortable. ? labor (O60.00):?CEFM/TOCO ??IVFs?s/p betamethasone 01/14-01/15 ??GBS negative ??s/p NICU consult ? Limited care (O09.30):?1st OB visit at 31 weeks ? Vaginal bleeding (N93.9):?No bleeding currently ??s/p??PDC US yesterday,??placenta evaluation normal no signs of??abruption ? Iron deficiency anemia of (O99.019): ??s/p iron infusion ?? Yeast vaginitis (B37.31): diagnosed 01/14, s/p treatment ?? 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 Patient discussed with Dr. Chan. OB History History?(1,0,0,1)? # 1 ?Baby 1 ?Outcome Date:??08/05/2017?Outcome or Result:??Vaginal ?Gest Age:??40 weeks ? Outcome:??Live ? Sex:??Female Active Problem List Active Problem List Iron deficiency anemia of : (Medical) Limited care: (Medical) : (Medical) : (Obstetric) (12/18/22) Uses Montenegrin as primary spoken language: (Medical) Medications Medications (2) Active SCHEDULED: (1) Influenza Quad (6mo - 64 yr) Fluzone 0.5mL (Influenza, Quadrivalent Vaccine (Fluzone Quad)) ??0.5 mL, Intramuscular, Once CONTINUOUS: (1) Lactated Ringers (1000 mL) Cont IV 1,000 mL (Lactated Ringers 1,000 mL) ??1,000 mL, IV Infusion, 125 mL/hr PRN: (0) Allergies NKA Note * Pushpa Gilbert RN: PERFORM Event Display: Discharge/Transfer Note Hospital Authored Date: [id number] Nursing Discharge Note Entered On: 01/19/2023 12:02 EST Performed On: 01/19/2023 12:00 EST by Pushpa Gilbert RN Nursing Discharge Note 2 Discharge Time : 01/19/2023 12:00 EST Discharge Level of Care at Discharge : Home/Senior Living/Foster Care Patient Left Unit Via : Ambulatory Patient Accompanied Off Unit with : Responsible adult DC Instructions Provided & Signed by Pt : Yes Patient Understands D/C Instructions : Yes Patient Instructions Discharge Signed : Yes Did Pt have Specialty Bed or Wound Vac : No Pushpa Gilbert RN - 01/19/2023 12:02 EST * Brielle Quinn MD: PERFORM Event Display: Discharge/Transfer Note Hospital Authored Date: [id number] Patient: ??ASHLI HOWE ? Age:??22 Years?Sex:??Female?:??2000?? Admit Date Admission Date: 01/18/2023 Discharge Date 01/19/23 OB Reason for Admission OB Reason for Admission Reason for admission: labor OBN Hospital Course 22-year-old admitted at 31 weeks and??4 days for concern for labor. She made no cervical change past 4cm during admission. On HD2 she was safely discharged after being found to be 3/70/-6, in tact, and not actively mckinley with reassuring monitoring. Objective/Physical Exam on Day of Discharge Vitals & Measurements T:??98.3?F ?? HR:??88(Monitored)?? SC:??94?? RR:??18?? BP:??126/76?? SpO2:??100%?? HT:??165??cm?? WT:??63??kg?? BMI:??23.14?? Constitutional:??No acute distress, resting comfortably. Respiratory:??Normal work of breathing. Lungs clear to auscultation bilaterally. Cardiovascular:??Regular rate and rhythm, no murmurs.? Abdomen/GI:??Gravid uterus. Soft, nontender. Extremities:??No calf tenderness or edema. Skin:??No rash or jaundice. Neurological/Psychiatric:??Mood and affect congruent and stable. Assessment/Plan/Discharge Diagnosis Assessment:??22yo at 31+5 admitted for concern of labor. Today she is 3/70/-6, in tact, and not mckinley. We discussed that she is not in labor. ?? Uses Montenegrin as primary spoken language (Z78.9):? 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 Anemia (D64.9):? s/p iron infusion 5 days ago CBC on admission: Hgb 7.2 Encouraged patient to take daily iron supplements Should have second??iron infusion set up outpatient ?? False labor before 37 completed weeks of gestation (O47.00):? Not in labor Continue routine care Return precautions reviewed ?? Delivery Summary Delivery Summary Maternal Information ??Delivery Information ?Gestational Age at Delivery: ??31W 5D ? Baby A ??Labor Information ? monitoring: ??External monitor ? Discharge Medications ???Multivitamin, (PNV Plus) * Jason BAIRES [OB], Shelli Guillen: PERFORM Event Display: Discharge/Transfer Note Hospital Authored Date: [id number] ?Attending Attestation:??I have seen and evaluated this patient. ??I have discussed the caseand its management with the resident and agree with the findings and plan as documented above in the resident???s note. ?Pt admitted for r/o PTL, has not made cervical change, contractions spaced, anemia stable on repeat CBC, already s/p IV iron, precautions reviewed * Pushpa Gilbert RN: PERFORM Event Display: Patient Education/Instruction Authored Date: [id number] Inpatient Adult Discharge Instructions [address] [address] Name: AHSLI HOWE : 2000 Visit: 01/18/2023 17:32:00 Current Date: 01/19/2023 11:09 Account: [id number] Inpatient Adult Discharge Instructions We would like [...] and their families. Surveys are administered by [employer] ?? If further treatment with your primary care physician or another doctor is recommended, it is important for you to keep the appointment. Call your primary care physician or return to the Emergency Department immediately if your condition worsens, fails to improve, or new symptoms develop. If you need to find a doctor, you can call [facility] for a referral at [phone] or toll free at [phone] or log in to [email or web address].. ?? You can view and manage your care through the patient portal or by using a health care bella of your choosing. [employer] is a website that allows you to securely view your medical information including your hospital discharge summary, office visit summaries, medications and follow-up visits. You can also request appointments, renew medications, and request access to your medical information using a health care bella of your choosing, or just ask a question. You can enroll at [email or web address] or register during your next office visit. You have been discharged from [facility], Patient Care Unit: [facility]. If you have any questions regarding these instructions after you leave, please call us and we will be happy to assist you. [facility] Your Care Team Attending Physician Dianne BAIRES, Marti Yarbrough Discharging Providers Cheyenne BAIRES, Brielle Reason for Admission labor Your Diagnosis Uses Montenegrin as primary spoken language labor Yeast vaginitis False labor before 37 completed weeks of gestation Anemia Tests Performed Below is a partial list of the tests performed during your hospitalization. You may have had other tests and procedures not included in this list. Please discuss all test results with your provider. CBC Complete Urinalysis COVID-19 (2019 Novel Coronavirus) PCR?-- Results Pending -- Type and Screen ? You will be contacted within 72 hours with your results. Primary Care Provider Not on Staff, PCP Advance Directive Health Care Proxy on File Yes - Health Care Proxy Discharge Vitals Temperature: 98.3 DegF Height: 165 cm Pulse Rate:??94 bpm??High Weight: 63 kg Respiratory Rate: 18 br/min Body Mass Index: 23.14 kg/m2 Systolic Blood Pressure: 126 mm Hg Body surface area: 1.7 Diastolic Blood Pressure: 76 mm Hg ?? Oxygen Saturation: 100 % ?? Studies Pending All tests and labs ordered during this hospital stay have been completed unless listed below. Please discuss all pending results with your provider listed above in these instructions. ?? COVID-19 (2019 Novel Coronavirus) PCR What to do next Instructions From Your Doctor Discharge Orders You Need to Schedule the Following Appointments Follow Up with??[facility] [place] te llamara para concertar lakshmi sukumar para las proximas dos semanas When?? Discharge Medications CARLEYKOSTAASHLI :2000 Visit Date:01/18/2023 Medications: Please continue your medications until treatment [...] Please discuss all test resultswith your provider. CBC (01/19/2023) ???WBC - 10.8 k/mm3???RBC - 2.91 m/mm3???Hgb - 7.6 Gm/dL???Hct - 24.4 %???MCV - 83.8 femtoliters???MCH - 26.1 pg???MCHC - 31.1 g/dL???Platelet Count - 202 k/mm3???RDW-SD - 40.7 femtoliters???MPV - 10.5 femtoliters???Nucleated RBC (Automated) - 0.2 #/100 WBC'S???Abs. NRBC - 0.0 k/mm3 Complete Urinalysis (01/18/2023) ???Appear/Color, Urine - YELLOW???Specific [place], Urine - 1.034???pH, Urine - 6.5???Albumin, Urine - 1+???Glucose, Urine - NEGATIVE???Ketones, Urine - NEGATIVE???Bilirubin, Urine - NEGATIVE???Hemoglobin, Urine - NEGATIVE???Nitrite, Urine - NEGATIVE???Leukocyte, Urine - NEGATIVE???Urobilinogen - 4mg/dL???WBC's, Urine - 3 /HPF???RBC's, Urine - 1 /HPF???Bacteria - HEAVY???Squamous Epith - 2 /HPF???Amorphous Crystals - SLIGHT???Calcium Oxal - SLIGHT???Mucus - MODERATE Type and Screen (01/18/2023) ???Blood Type - A Positive???Antibody Screen - Negative Allergies (NKA means No Known Allergies) NKA Problems Active Problems??(5) Iron deficiency anemia of ?? Limited care? Uses Montenegrin as primary spoken language?? Education Materials Below is the list of Educational Leaflet Providered with your Discharge Instructions. Understanding Labor?? Premature Labor?? Valuables and Belongings I fully understand and agree that [facility] accepts no responsibility for all my personal [...] encouraged to send valuables and belongings home. ? Other Discharge Information ? Pulmonary Rehab Status?? Pulmonary Rehab Discharge Status?? Respiratory Rate: 18 br/min ? Common Emergency Awareness Tips IS [...] are strongly encouraged to quit. Please call [facility] at [phone] or [phone] or log in to [email or web address] for referrals to smoking cessation programs. ?? The National Suicide Prevention Hotline is available 10/06 if you or someone you know needs to find a reason to keep living. By calling 6-474-812-talk (9531) you'll be connected to a skilled, trained counselor at a crisis center in your area. INPATIENT DISCHARGE INSTRUCTIONS SIGNATURE PAGE ASHLI HOWE Location:[facility] Registration Date and Time:01/18/2023 17:32 EST Primary Care Physician: Not on Staff, PCP I ASHLI HOWE, have received the above patient education materials/instructions and have verbalized understanding. If ambulance or transport services are being used I further acknowledge being given a choice of service. ?? If you need to contact me, please call me at this number: . Patient/Erosion Control Coordinator Name: Patient/Erosion Control Coordinator Signature: Relationship to Patient: Witness Name/Signature: Date: * Pushpa Gilbert RN: PERFORM, SIGN, VERIFY Event Display: Patient Education Handout Authored Date: [id number] * Pushpa Gilbert RN: PERFORM Event Display: Patient Education Leaflets Authored Date: [id number] Understanding Labor ?? [address] El trabajo de parto prematuro El trabajo de parto que comienza antes de la semana??37 de gestaci??n se llama trabajo de parto prematuro. El trabajo de parto prematuro puede kristen lugar a un nacimiento prematuro. [place] puede causar problemas de shad en abrams beb??. Antes del trabajo de parto, el robbie uterino est?? espeso y cerrado. Char el trabajo de parto prematuro, el robbie uterino comienza a perder espesor y a dilatarse (abrirse). S??ntomas del trabajo de parto prematuro Si kaelyn que est?? teniendo s??ntomas de trabajo de parto prematuro, busque ayuda m??dica de inmediato. Recuerde que las contracciones por s?? solas no significan necesariamente que est?? teniendo un trabajo de parto prematuro. Lo m??s significativo son los cambios en el robbie uterino. El robbie uterino es la abertura en el extremo inferior del ??tero. Los s??ntomas del trabajo de parto prematuroson los siguientes, entre otros: ??? 4??o m??s contracciones por hora ??? Contracciones triny ???C??licos constantes del mismo tipo que los c??licos menstruales ??? Dolor en la parte baja de la espalda ??? Secreci??n vaginal que contiene meka o mucosidad ??? Sangrado o manchas en el fred o tercer trimestre de embarazo ?? Evaluaci??n de los s??ntomas de parto prematuro Abrams proveedor de atenci??n m??dica tratar?? de determinar si realmente tiene trabajo de parto prematuro o si se trata simplemente de contracciones. El profesional la controlar?? char algunas horas.Es posible que le realicen estas pruebas: ??? Exploraci??n ginecol??gica. Permite determinar si el robbie uterino ta perdido grosor y se ta dilatado (abierto). ??? Monitoreo de la actividad uterina. Se usa para detectar contracciones. ??? Monitoreo . Se hace para comprobar la shad del beb??. ??? Ecograf??a. Nelia estudio se usa para determinar el robbin??o y la posici??n del beb??. ??? Amniocentesis. Determina el pineda de madurez de los pulmones de abrams beb??. ?? C??mo cuidarse en abrams casa Si tiene contracciones prematuras, janette el robbie uterino todav??a est?? grueso y cerrado, es posible que abrams proveedor de atenci??n m??dica le pida lo siguiente: ??? Beber abundante cantidad de agua.??? Reducir abrams nivel de actividad. ??? Descansar en la cama, sobre el costado. ??? No tener relaciones sexuales ni estimular los pezones. ?? Cu??ndo llamar a abrams proveedor de atenci??n m??dica Llame a abrams proveedor de atenci??n m??dica si tiene alguno de los siguientes s??ntomas: ??? 4??o m??s contracciones por hora ??? Rompimiento de hi ??? Sangrado o manchas de meka ?? Si necesita atenci??n en el hospital Tener un trabajo de parto prematuro suele requerir atenci??n en el hospital. Puede que necesite reposo total en la cama. Le colocar??n lakshmi v??a intravenosa (i.??v.) en el brazo o la mano. [place] se realiza para administrarle l??quidos. Kirit vez le den pastillas o inyecciones. Estas se administran paraprevenir las contracciones. O puede que le den un medicamento llamado corticoesteroide.??Nelia medicamento favorece un desarrollo m??s r??pido de los pulmones del beb??. ?Usted corre riesgos? El trabajo de parto prematuro puede afectar a cualquier john. Puede comenzar sin josué??n motivo aparente. No obstante, los siguientes factores de riesgo aumentan las probabilidades de que se produzca: ??? Antecedentes de trabajo de parto prematuro o nacimientos prematuros ??? Tabaquismo o consumo de drogas o alcohol char el embarazo ??? Embarazo m??ltiple (mellizos o m??s) ??? Problemas con la forma del ??tero ??? Sangrado char el embarazo ?? Los peligros del nacimiento prematuro Un beb?? que nace demasiado pronto puede tener problemas de shad. [place] se debe a que no ta tenido tiempo suficiente para desarrollarse. Algunos de los riesgos para el beb?? incluyen: ??? No amamantarse o alimentarse dez ??? Pulmones inmaduros ??? Hemorragias cerebrales ??? Muerte ?? C??mo llegar al t??rmino Abrams objetivo es llegar lo m??s cerca posible del t??rmino del embarazo (semana??37 o m??s) antes de kristen a moises. Cuanto m??s cerca llegue, habr?? m??s probabilidades de tener un beb?? ilene. Trabaje en colaboraci??n con abrams proveedor de atenci??n m??dica. Juntos, podr??n jc las medidas necesarias para evitar el nacimiento prematuro del beb??. ?? Last Reviewed Date: 2021 ?? [employer]. Todos los derechos reservados. Esta informaci??n no pretende sustituir la atenci??n m??dica profesional. S??lo abrams m??dico puede diagnosticar y tratar un problema de shad. ?? * Pushpa Gilbert RN: PERFORM Event Display: Patient Education Leaflets Authored Date: [id number] Premature Labor ?? [id number] Trabajo de parto prematuro [Premature Labor] El [...] Sin embargo, ciertos factores pueden hacer que nelia problema sea m??s probable. Estos incluyen: ??? [...] muchos otros factores de riesgo. P??fili a abrams proveedor de atenci??n m??dica que le ayude aentender los factores de riesgo espec??ficos en abrams kirill, y luego femi qu?? puede hacer [...] de parto exitosamente y tanto usted beto abrams beb?? est??n sanos, puede ser rudy de abran y continuar los cuidados en abrams hogar. Cuidados en el hogar ??? H??gale cualquier pregunta que tenga a abrams proveedor de atenci??n m??dica. Aseg??rese de entender c??mo cuidarse en casa. Adem??s, siga todas las recomendaciones que le den praful proveedores de atenci??n m??dica. ??? Conozca las se??ales del trabajo de parto prematuro. Vigile esas se??ales cuando est?? en casa. ??? Limite o restrinja las actividades beto le aconsejen. [place] pu tiago incluir dejar de hacer ciertas actividades f??sicas y reducir praful horas de trabajo. ??? Evite hacer actividades extenuantes. Pida ayuda a praful familiares y amigos con las tareas y apoyo en abrams casa, seg??n sea necesario. ??? No fume, no uzair alcohol ni consuma otras sustancias perjudiciales. ??? [place] medidas para reducir el estr??s. ??? Informe cualquier s??ntoma inusual a abrams m??dico. ?? Cuidados de seguimiento Shilpi un seguimiento con abrams proveedor de atenci??n m??dica o beto lo indiquen. Es posible que se necesiten visitas semanales con abrams proveedor. ?? Cu??ndo buscar consejo m??dico Llame de inmediato a abrams proveedor de atenci??n m??dica si algo de [...] del beb? Last Reviewed Date: 2021 ?? [employer]. Todos los derechos reservados. Esta informaci??n no pretende sustituir la atenci??n m??dica profesional. S??lo abrams m??dico puede diagnosticar y tratar un problema de shad. ?? Patient Care team information Care Team Personnel Name: Not on Staff, PCP Position: [facility] Physician (General Medicine) Member Role: PCP Name: Concetta Hammond RN Position: [facility] OB RN Member Role: Patient Care Provider Name: Mariam Mike RN Position: [facility] OB RN Member Role: Patient Care Provider Care Team Related Persons Name: ISABELLA RENÉE Address: [address] [place] [address]
--- OUTSIDE RECORDS SUMMARY | 2023-09-13 03:32 | XMS_ITS | Continuity of Care Document ---
Author Name Unknown Organization [facility] Address [address] [address]- Care Team Providers Care Crewman [employer] Name Role Phone Not on Staff, PCP Primary Care Physician Unavail able [place] [facility] [place]/23 [facility] [address] [address]- Allergies, Adverse Reactions, Alerts No Known Allergies Medications PNV Plus By Mouth, Daily, 0 Refills, Maintenance, 01/10/23 14:24:00 EST, Partial fill upon patient request if the prescription is for a schedule II opioid drug. Start Date: 01/10/23 Status: Ordered Problem List Condition Confirmation Course Effective Dates Status Health St atus Informant Limited care Confirmed Active Iron deficiency anemia of Confirmed Active Uses Indonesian as primary spoken language Confirmed Active Confirmed [...] Persons Name: RENÉE MASON Address: home [address] [place] [address]
--- NOTE | 2023-09-13 03:34 | ED_ITS ---
HPI - General Adult General Chief complaint: General Medical Stated complaint: Possible UTI, was here recently Time Seen by Provider: 09/13/23 03:25 Source: patient Mode of arrival: ambulatory Limitations: no limitations History of Present Illness HPI narrative: Patient comes to the emergency room complaining of pelvic pain. Patient states that she was recently diagnosed with bacterial vaginosis 2 days ago. Today, patient states that he has worsening pelvic pain. However, patient states that she has also menstruating, patient states that she usually has heavy menstrual periods with severe camping and he is unsure if she has pelvic pain from the cramping or from the vaginal infection for which she was diagnosed. Patient denies any UTI symptoms, no flank pain no fever chills. Related Data Previous Rx's Medication Instructions Recorded metronidazole 500 mg tablet 500 mg PO BID 7 days #14 tabs 09/12/23 Allergies Allergy/AdvReac Type Severity Reaction Status Date / Time No Known Allergies Allergy Verified 09/11/23 16:22 Review of Systems 2 Review of Systems: Constitutional : No Weight loss, No Fever, No Chills, No Night Sweats, No Fatigue, No Malaise ENT/Mouth : No Hearing loss, No Ear Pain, No Nasal Congestion, No Sinus Pain, No Hoarseness, No sore throat, No Rhinorrhea, No Swallowing Difficulty Eyes: No Eye Pain, No Swelling, No Redness, No Foreign Body, No Discharge, No Vision Changes Cardiovascular : No Chest Pain, No SOB, No Dyspnea on Exertion, No Orthopnea, No Edema, No Palpitations Respiratory : No Cough, No Sputum, No Wheezing, No Smoke Exposure, No Dyspnea Gastrointestinal : No Nausea, No Vomiting, No Diarrhea, No Constipation, No abdominal Pain, No Hematochezia, No Melena Genitourinary : Complaining of currently menstruating, severe abdominal cramping, heavy vaginal bleeding at baseline for menstruation. No Dysuria, No Urinary Frequency, No Hematuria, No Urinary Incontinence, No Urgency, No Flank Pain, No Urinary Flow Changes, No Hesitancy Musculoskeletal : No joint pain, No Myalgias, No Joint Swelling Skin : No Skin Lesions, No rash Neuro : No Weakness, No Numbness, No Paresthesias, No Loss of Consciousness, No Dizziness, No Headache Psych : No Anxiety/Panic, No Depression, No SI/HI/AH/VH, No Social Issues, Heme/Lymph: No Bruising, No Bleeding,No Lymphadenopathy Endocrine : No Polyuria, No Polydipsia, No Temperature Intolerance PMF Past Medical History Medical History (Updated 09/13/23 @ 07:04 by Samra Castano MD) Menorrhagia Social History Social History Alcohol intake: current Alcohol intake frequency: holidays/special occasions only Advance Directives: No Advance Directives Information Provided: No Patient : No Physical Exam ED Vital Signs: Vital Signs - 24 hr 09/13/23 03:12 09/13/23 03:15 09/13/23 04:08 Temperature 98.5 F 98.3 F 97.5 F Pulse Rate 135 H 112 H 103 H Respiratory Rate 22 H 17 21 H Blood Pressure 102/62 116/73 121/71 Pulse Oximetry 98 100 100 Oxygen Delivery Method Room Air Room Air Room Air 09/13/23 04:31 09/13/23 05:23 09/13/23 06:51 Temperature 98.1 F Pulse Rate 104 H 104 H 92 Respiratory Rate 20 16 17 Blood Pressure 119/70 118/69 109/72 Pulse Oximetry 100 98 99 Oxygen Delivery Method Room Air Room Air Room Air BMI result Body Mass Index 18.3 Const Other: Appearance: Alert. Oriented X3. No acute distress. Eyes: Pupils equal, round and reactive to light. ENT: Pharynx normal. Neck: Normal inspection. Neck supple. No lymph nodes noted. No crepitus CVS: Normal heart rate and rhythm. Pulses normal. Normal S1 and S2 Respiratory: No respiratory distress. Breath sounds normal. No Wheezing. No rales Abdomen: Soft and nontender. No rigidity. No distention. : Moderate amount of blood in the cervical canal, patient did not have any significant amount of pain when cervix was palpated, no pain out of proportion,, given the amount of blood, difficult to say if patient had vaginal discharge Skin: Skin warm and dry. Normal skin color. Normal skin turgor. Extremities: No lower extremity edema. No Lacerations. No Rash Neuro: Oriented X 3. No motor deficit. No sensory deficit. Moving all extremities. No slurred speech. CN 2 through 12 grossly intact Psych: calm, cooperative, normal affect Course Course Course Narrative: -I discussed with the patient that she was seen here yesterday. Her labs are positive for gonorrhea. Patient crying, very upset. -given that patient has severe pelvic pain, unclear if this is secondary to PID versus menstrual cramping. We will go ahead and start empiric antibiotic for PID, patient given IV cefotetan and doxycycline. -for pain control, patient was given 2 mg of morphine sulfate. -CT scan of the abdomen pending care discussed with the patient that depending on the ultrasound findings, we may need an ultrasound. Patient agreeable with plan. -ultrasound of pelvis pending. Sign-out given to Dr. Edward Medications Administered Discontinued Medications Generic Name Dose Route Start Last Admin Trade Name Freq PRN Reason Stop Dose Admin Cefotetan Disodium 2 gm/ 50 mls @ 100 mls/hr 09/13/23 03:37 09/13/23 04:29 Sodium Chloride IV 09/13/23 04:06 Infused ONCE ONE Infusion Doxycycline Hyclate 100 mg/ 250 mls @ 166.67 mls/hr 09/13/23 03:37 09/13/23 04:34 Sodium Chloride IV 09/13/23 05:06 166.67 mls/hr ONCE ONE Administration Iohexol 85 ml 09/13/23 05:15 09/13/23 05:17 Iohexol 350 Mg/Ml 100 Ml Infus..Btl IV 09/13/23 05:16 85 ml ONCE ONE Administration Morphine Sulfate 2 mg 09/13/23 04:19 09/13/23 04:29 Morphine Sulfate 2 Mg/Ml Cartridge IVPUSH 09/13/23 04:20 2 mg ONCE ONE Administration Protocol Medical Decision Making Medical Decision Making [facility] Narrative: -my interpretation of labs, elevated white blood cell count. Patient being treated with IV antibiotics to cover for pelvic inflammatory disease. -my interpretation of CT scan of the abdomen pelvis, no significant abnormality. -radiology report, no specific findings, we will go ahead and order on ultrasound Differential Diagnosis Differential Diagnoses: The differential diagnosis associated with the presentation includes (Menstrual cramping, pelvic inflammatory disease, tubo- ovarian abscess) Admission/Observation Consideration of admission/observation: Escalation of care including admission/observation considered (Given the patient's presentation, admission was considered on arrival) Lab Data [facility] Lab Attestation statement: I reviewed the patient's lab results. 09/13/23 03:18 10/27/23 03:18 Labs: Lab Results 09/13/23 09/13/23 09/13/23 Range/Units 03:18 04:45 04:56 WBC 23.6 H (4.8-10.8) X10*3/uL RBC 4.66 (4.20-5.50) X10*6/uL Hgb 12.9 (12.0-16.0) g/dl Hct 39.2 (37.0-47.0) % MCV 84.1 (80.0-98.0) fL MCH 27.7 (27.0-33.0) pg MCHC 32.9 (31.0-35.0) g/dl RDW 15.6 (11.0-16.0) % Plt Count 290 (160-400) X10*3/uL MPV 10.4 (9.4-12.3) fL Absolute Nucleated RBC 0.000 (0.0-0.012) X10*3/uL Nucleated RBC % (auto) 0.0 (0.0-0.2) /100WBC Sodium 140 (135-145) mmol/L Potassium 3.3 D (3.3-5.1) mmol/L Chloride 104 (96-108) mmol/L Carbon Dioxide 23 (22-29) mmol/L Anion Gap 16 (12-20) BUN 10 (9-16) mg/dL Creatinine 0.85 (0.5-1.4) mg/dL Estim Creat Clear Calc 82.5 Estimated GFR > 60 Random Glucose 113 (60-115) mg/dL Lactic Acid 1.6 (0.5-2.0) mmol/L Calcium 10.3 H (8.4-10.2) mg/dL Total Bilirubin 2.0 H (0.0-1.0) mg/dL AST 14 (5-31) U/L ALT 7 (0-31) U/L Alkaline Phosphatase 85 (39-117) U/L Total Protein 7.9 (6.5-8.0) g/dL Albumin 4.6 (3.5-5.0) g/dL Beta HCG, Quant < 2 mIU/mL Chlam trachomat DNA PCR NOT DETECTED (Not Detect.) N.gonorrhoeae DNA (PCR) DETECTED A (Not Detect.) Independent Interpretation I performed an independent interpretation of an: CT Scan Radiology Impression Discussion of test interpretation with radiology: I have reviewed the radiologist's reading. Radiologist Impression: FINDINGS: LUNG BASES: The visualized lung bases are unremarkable. LIVER, GALLBLADDER, AND BILIARY TREE: The liver is normal in size, shape, and attenuation. No focal hepatic lesion or biliary ductal dilatation is present. The gallbladder is unremarkable with no evidence of radiopaque gallstones, gallbladder wall thickening, or obvious pericholecystic inflammatory changes. PANCREAS: Unremarkable. SPLEEN: Unremarkable. ADRENAL GLANDS: Unremarkable. KIDNEYS AND URETERS: Bilateral nephrograms are symmetric. No hydronephrosis or obstructing calculus identified. BLADDER: Unremarkable. GASTROINTESTINAL TRACT: No evidence of bowel obstruction or significant wall thickening. Appendix appears near the upper limits of normal in size, without surrounding infiltration to suggest appendicitis. No free fluid or free air is seen. ABDOMINAL WALL: No significant hernia is appreciated. LYMPH NODES: Normal. VASCULAR: Prominent pelvic veins are noted bilaterally, which can be seen with pelvic congestion syndrome. PELVIC VISCERA: Symmetric appearance of the bilateral ovaries, with multiple small cystic structures favoring follicles. Right ovary is noted along the right lateral pelvis, in the left ovary lies superior to the uterus. No specific findings to suggest tubo-ovarian abscess. OSSEOUS STRUCTURES: Unremarkable. CT/CT abdomen pelvis w IV con IMPRESSION: 1. No specific findings to suggest tubo-ovarian abscess. If clinical concern persists, assessment with pelvic ultrasound may be helpful. 2. Prominent pelvic veins, which can be seen with pelvic venous insufficiency. Critical Care Time Critical Care Time Critical Care Time: Yes Total Critical Care Time: 60 Attestation: I have personally provided critical care time. Time includes review of lab data, radiology results, discussion with consultants, and monitoring for potential decompensation. Intervention performed as documented. Discharge Plan Discharge Clinical Impression: Abdominal pain, suprapubic Patient Disposition: Still a Patient Prescriptions: No Action metronidazole 500 mg tablet 500 mg PO BID 7 Days Qty: 14 0RF
[2023-09-13 03:39] LABS: Alanine Aminotransferase 7 U/L (0-31); Albumin Level 4.6 g/dL (3.5-5.0); Alkaline Phosphatase 85 U/L (39-117); Anion Gap 16 (12-20); Aspartate Amino Transferase 14 U/L (5-31); Blood Urea Nitrogen 10 mg/dL (9-16); Calcium 10.3 mg/dL (8.4-10.2); Carbon Dioxide 23 mmol/L (22-29); Chloride 104 mmol/L (96-108); Creatinine Clr Calc Pharmacy 82.5; Estimated Glomerular Filt Rate > 60; Glucose Random 113 mg/dL (60-115); Potassium 3.3 mmol/L (3.3-5.1); Sodium 140 mmol/L (135-145); Total Protein 7.9 g/dL (6.5-8.0)
[2023-09-13] MEDS: cefoTEtan disodium 2 GM in 0.9 % Sodium Chloride 50 ML IV (03:45)
[2023-09-13 04:08] VITALS: BP 121/71; PULSE 103; RESP 21; TEMP 36.4; O2SAT 100
[2023-09-13] MEDS: Morphine Sulfate 2 MG/ML CARTRIDGE IVPUSH (04:29)
[2023-09-13 04:31] VITALS: BP 119/70; PULSE 104; RESP 20; O2SAT 100
[2023-09-13] MEDS: Doxycycline Hyclate 100 MG in 0.9 % Sodium Chloride 250 ML 166.67 MG IV (04:34)
[2023-09-13 04:41] LABS: HCG Quantitative < 2 mIU/mL
[2023-09-13 05:01] LABS: Lactic Acid 1.6 mmol/L (0.5-2.0)
[2023-09-13] MEDS: iohexoL 350 MG/ML 100 ML INFUS..BTL 85 ML IV (05:17)
[2023-09-13 05:23] VITALS: BP 118/69; PULSE 104; RESP 16; TEMP 36.7; O2SAT 98
[2023-09-13 06:33] LABS: CT PCR NOT DETECTED (Not Detect.); NG PCR DETECTED (Not Detect.)
--- NOTE | 2023-09-13 06:39 | PC.NURSE ---
Doxycycline paused d/t patient taking to CT scan and US.
--- NOTE | 2023-09-13 06:48 | PC.NURSE ---
Patient returned from transvaginal US, Doxycycline restarted.
[2023-09-13 06:51] VITALS: BP 109/72; PULSE 92; RESP 17; O2SAT 99
[2023-09-13 07:05] LABS: Appearance Urine Clear; Color Urine Yellow; Glucose Urine UA Negative (Negative); Leukocyte Esterase Urine Small (1+) (Negative); Nitrite Urine Negative (Negative); PH 7.5 (5.0-9.0); Specific Gravity - Urine >= 1.030 (1.005-1.025); UMIC TRIGGER UACC YES; Urine Blood Moderate (2+) (Negative); Urine Ketones Trace mg/dL (Negative); Urine Protein Trace mg/dL (Neg-Trace)
[2023-09-13 07:06] LABS: UPreg QC Valid YES; Urine Pregnancy NEGATIVE (NEGATIVE)
[2023-09-13 07:15] LABS: Bacteria Urine Trace (None Seen); Hyaline Casts Urine 0-2 /LPF (0-2); UACC Culture Trigger YES; WBC Urine >50 /HPF (0-5)
[2023-09-13 14:11] LABS: BV Int Neg Control Negative (Negative); BV Int Pos Control Positive (Positive)
== END 2023-09-13 09:04 | disposition home or self-care (01) ==
PROVIDERS: Emergency Provider Emergency Medicine
DX: A54.24 Gonococcal female pelvic inflammatory disease (principal); R10.2 Pelvic and perineal pain; N39.0 Urinary tract infection, site not specified
CPT/HCPCS: 0353U; 36415; 74177; 76830; 76856; 80053; 81001; 81025; 83605; 84702; 85027; 87040; 87086; 87480; 87510; 87660; 96365; 96366; 96367; 96375; 99284; J2270; Q9967

== ENCOUNTER 2025-08-24 11:39 | Outpatient (REF) | payer MEDICAID, SELFPAY ==
--- OUTSIDE RECORDS SUMMARY | 2025-08-24 10:30 | XMS_ITS | Encounter Summary ---
Author Organization [facility] Address [address] [place] [address] Care Team Providers Care Creative Writing Teacher Name Role Phone Unavailable Primary Care Provider Unavailabl e Reason for Referral * Consultation (Routine) - Authorized Specialty Diagnoses / Procedures Referred By Contjerel t Referred To Contact Optometry Diagnoses Blurry vision, bilateral Darshana Hendrix FNP [address] [place] [address] Phone: tel: fax: Referral ID Status Reason Start Date Expiration Date Visits Requested Visits Authorized [id number] Authorized Specialty Services Required 08/24/2025 08/24/2026 1 1 Encounter Details Date Type Department Care Team (Late st Contact Info) Description 08/24/2025 10:30 AM EDT Office Visit [facility] [address] [place] [address] Darshana Hendrix FNP [address] [place] [address] Adult wellness visit (Primary Dx); Encounter for sexual health education; Contraceptive education; Blurry vision, bilateral Social History Tobacco Use Types Packs/Day Years Used Date Smoking Tobacco: Never Passive Smoke Exposure: Never Smokeless Tobacco: Never Tobacco Cessation:Counseling Given: Not Answered Depression Answer Date Recorded Patient Health Questionnaire-9 Score 1 08/24/2025 Patient Health Questionnaire-9 Score 1 08/24/2025 Last PHQ-9: Questionnaire Data Not on file 1 Housing Stability Answer Date Recorded What is your housing situation today? I do not have housing (Staying with others, in a hotel, in a fdc, living outside on the street, on a beach, in a car, or in a park 08/24/[address] you li ve. Do you have problems with any of the following? Pests such as bugs, ants, or mice 08/24/2025 Food Insecurity Answer Date Recorded Within the past 12 months, y ou worried that your food would run out before you got money to buy more: Never True 01/06/2025 Within the past 12 months,th e food you bought just didn't last and you didn't have enough money to get more: Never True Transportation Answer Date Recorded In the past 12 months, has l ack of transportation kept you from medical appts, meetings, work or from getting things needed for daily living? Yes, it has kept me from medical appointments or getting medications. 08/24/2025 Utilities Answer Date Recorded In the past 12 months, has t he electric, gas, oil or water company threatened to shut off services in your home? No 12/08/2024 Depression Answer Date Recorded Patient Health Questionnaire-2 Score 0 08/24/2025 Internet Access Answer Date Recorded Internet Access Q1 No 01/06/2025 Internet Access Q2 I cannot afford it;I nternet/Wi-Fi access is not available where I live 01/06/2025 Comments Unknown Intention Date Recorded No desire to become (finding) 1 Sex and Gender Information Value Date Recorded Sex Assigned at Unknown 01/18/2025 9:23 AM EST Legal Sex Female 1:45 PM EST Gender Identity Choose not to disclose 9:23 AM EST Sexual Orientation Don't know 01/18/2025 9: 23 AM EST documented as of this encounter Last Filed Vital Signs Vital Sign Reading Time Taken Comments Blood Pressure 94/70 08/24/2025 10:16 AM EDT Pulse 102 08/24/2025 10:16 AM EDT Temperature 36.7 C (98.1 F) 08/24/2025 10:16 AM EDT Respiratory Rate 14 08/24/2025 10:16 AM EDT Oxygen Saturation 96% 08/24/2025 10:16 AM EDT Inhaled Oxygen Concentration - - Weight 54.5 kg (120 lb 4 oz) 08/24/2025 10:16 AM EDT Height 164.1 cm (5' 4.62 ) 08/24/2025 10:16 AM E DT Body Mass Index 20.25 08/24/2025 10:16 AM EDT documented in this encounter Functional Status * Over the past 2 weeks, how often have you been bothered by any of the following problems? Question Answer Date of Assessment Author Patient Health Questionnaire-2 Score 0 08/24/2025 11:35 AM EDT Kalyn Goff MA * Little interest or pleasure in doing things Answer Date of Assessment Author Not at all 08/24/2025 11:35 AM EDT Kalyn Young Ma, [place] * Feeling down, depressed, or hopeless Answer Date of Assessment Author Not at all 08/24/2025 11:35 AM ILENET Kalyn Young Ma, [place] * Trouble falling or staying asleep, or sleeping too much Answer Date of Assessment Author Not at all 08/24/2025 11:35 AM ILENET Kalyn Young Ma, [place] * Feeling tired or having little energy Answer Date of Assessment Author Several days 08/24/2025 11:35 AM EDT Kalyn Young Ma, [place] * Poor appetite or overeating Answer Date of Assessment Author Not at all 08/24/2025 11:35 AM Kalyn Wren Ma, [place] * Feeling bad about yourself - or that you are a failure or have let yourself or your family down Answer Date of Assessment Author Not at all 08/24/2025 11:35 AM ILENET Kalyn Young Ma, [place] * Trouble concentrating on things, such as reading the newspaper or watching television Answer Date of Assessment Author Not at all 08/24/2025 11:35 AM Kalyn Wren Ma, [place] * Moving or speaking so slowly that other people could have noticed? Or the opposite - being so fidgety or restless that you have been moving around a lot more than usual. Answer Date of Assessment Author Not at all 08/24/2025 11:35 AM Kalyn Wren Ma, [place] * Thoughts that you would be better off or hurting yourself in some way Answer Date of Assessment Author Not at all 08/24/2025 11:35 AM EDT Kalyn Young Ma, [place] * Patient Health Questionnaire-9 Score Answer Date of Assessment Author 1 08/24/2025 11:35 AM EDT Kalyn Young Ma, [place] * How difficult have these problems made it for you to do your work, take care of things at home, or get along with other people? Answer Date of Assessment Author Not difficult at all 08/24/2025 11:35 AM EDT Kalyn Thomas MA * Over the last 2 weeks, how often have you been bothered by any of the following problems? Question Answer Date of Assessment Author Feeling nervous, anxious, or on edge 0 08/24/2025 11:35 AM EDT Kalyn Fuentes MA Not being able to stop or control worrying 0 08/24/2025 11:35 AM EDT Kalyn Fuentes MA Worrying too much about different things 0 08/24/2025 11:35 AM EDT Kalyn Fuentes MA Trouble relaxing 0 08/24/2025 11:35 AM EDT Kalyn Fuentes MA Being so restless that it is hard to sit still 0 08/24/2025 11:35 AM ILENET Kalyn Fuentes MA Becoming easily annoyed or irritable 0 08/24/2025 11:35 AM EDT Kalyn Fuentes MA Feeling afraid as if something awful might happen 0 08/24/2025 11:35 AM EDT Kalyn Diamond MA CONSTANTINO-7 Total Score 0 08/24/2025 11:35 AM EDT Kalyn Fuentes MA documented as of this encounter Progress Notes * LIDA Torrez - 08/24/2025 10:30 AM EDT Subjective: Ashli Jarvis is a 25 y.o. choose not to disclose who presents to the office for a newpatient visit. Current concerns: Contraception Sexual education Problem List[1] Surgical History[2] Family History[3] Social History Living situation: Lives in a fdc with 3 daughters. Father not in the lives of children. Safety: No fire arms in the home. Working smoke and fire alarm. Reports home and environment safe. Employment/Education: Unemployed Diet/exercise: Eats variety of food including fruits and vegetables. No routine exercise Substance use: Denies use Sexual preference : Male Sexual activity: No Dental: [facility] Vision: Refer to [facility] vision Last menstrual period: 08/10/2025 Menarche 14 yrs Children: 3 children vaginal delivery Pap smear: To schedule for pap smear Mental health: Denies SI, harm self or others Allergies[4] Current Medications[5] Health Maintenance Topic Date Due Chlamydia and Gonorrhea Screening Never done HIV Screening Never done Meningococcal B Vaccine (1 of 2 - Standard) Never done Hepatitis C Screening Never done Hepatitis B Vaccines (1 of 3 - 19+ 3-dose series) Never done Pap Smear Never done Influenza Vaccine (1) 05/17/2026 (Originally 07/19/2025) HPV Vaccines (1 - 3-dose series) 08/24/2026 (Originally 2017) COVID-19 Vaccine ( - 2023- season) 2026 (Originally 07/19/2025) Depression Screening 08/24/2026 Tobacco Screening 08/24/2026 SDOH Screening 08/24/2026 Alcohol/Substance Use Screening 08/24/2026 Family Planning (PISQ) 08/24/2026 Disability Screening 08/24/2026 DTaP/Tdap/Td Vaccines (2 - Td or Tdap) 10/16/2034 Zoster Vaccines (1 of 2) 2052 RSV Patients and Patients Aged 60 years or older Completed RSV under 20 months Aged Out HIB Vaccines Aged Out IPV Vaccines Aged Out Hepatitis A Vaccines Aged Out Meningococcal Vaccine Aged Out Rotavirus Vaccines Aged Out Pneumococcal Vaccine: Pediatrics (0 to 5 Years) and At-Risk Patients (6 to 49) Years Aged Out Review of Systems Constitutional: Negative for activity change and appetite change. HENT: Negative for congestion, ear discharge, hearing loss and trouble swallowing. Eyes: Negative for pain and discharge. Respiratory: Negative for apnea, cough, shortness of breath and wheezing. Cardiovascular: Negative for chest pain, palpitations and leg swelling. Gastrointestinal: Negative for abdominal distention, abdominal pain, constipation, diarrhea and nausea. Endocrine: Negative for cold intolerance and heat intolerance. Genitourinary: Negative for difficulty urinating, frequency and penile discharge. Musculoskeletal: Negative for back pain and gait problem. Skin: Negative for color change and wound. Neurological: Negative for dizziness, facial asymmetry and speech difficulty. Psychiatric/Behavioral: Negative for agitation, confusion, sleep disturbance and suicidal ideas. The patient is not nervous/anxious. Vitals: 08/24/25 1016 BP: 94/70 BP Location: Left arm Patient Position: Sitting BP Cuff Size: Adult Pulse: 102 Resp: 14 Temp: 98.1 ??F (36.7 ??C) TempSrc: Oral SpO2: 96% Weight: 120 lb 4 oz (54.5 kg) Height: 5' 4.62 (1.641 m) Physical Exam Constitutional: Appearance: Normal appearance. HENT: Head: Normocephalic and atraumatic. Right Ear: Tympanic membrane, ear canal and external ear normal. Left Ear: Tympanic membrane, ear canal and external ear normal. Nose: Nose normal. Mouth/Throat: Mouth: Mucous membranes are moist. Pharynx: Oropharynx is clear. Eyes: Extraocular Movements: Extraocular movements intact. Conjunctiva/sclera: Conjunctivae normal. Pupils: Pupils are equal, round, and reactive to light. Cardiovascular: Rate and Rhythm: Normal rate and regular rhythm. Pulses: Normal pulses. Heart sounds: Normal heart sounds. Pulmonary: Effort: Pulmonary effort is normal. Breath sounds: Normal breath sounds. Abdominal: General: Bowel sounds are normal. Palpations: Abdomen is soft. Musculoskeletal: Cervical back: Normal range of motion and neck supple. Skin: General: Skin is warm and dry. Neurological: Mental Status: Ashli is alert and oriented to person, place, and time. Psychiatric: Mood and Affect: Mood normal. Behavior: Behavior normal. Thought Content: Thought content normal. Judgment: Judgment normal. Problem List Items Addressed This Visit None Visit Diagnoses Adult wellness visit - Primary Well nourished, alert and cooperative , good historian, and answering questions appropriately Plan Order comprehensive blood work to include complete blood count (CBC), sexually transmitted infection (STI) panel, lipid panel. No family hx of colon CA, colonoscopy / stool based tests deferred to 45 yrs Scheduled Pap smear for cervical cancer screening. Provided education regarding the purpose and process of Pap smear. Diet and exercise review Hep B lab work to determine presence of antigens or antibody Lifestyle and behavioral health assessment Patient education on vaccination and importance getting annual vaccines Patient education on sexual health Relevant Orders Comprehensive Metabolic Panel Hepatitis B Core Antibody, Total Hepatitis B Surface Antibody, Qualitative Hepatitis B surface antigen, EIA Hepatitis C Antibody with Reflex to HCV, RNA, Quantitative, Real-Time PCR CBC auto differential HIV-1/2 Antigen and Antibodies, Fourth Generation, with Reflexes Lipid Panel, Standard Chlamydia/N. Gonorrhoeae, PCR, Urine Syphilis Screen Encounter for sexual health education Contraceptive education Expressed interest in initiating contraception; previously experienced adverse effects with injectable contraception. Provided counseling on available contraceptive options including Nexplanon, oral contraceptive pills, and intrauterine device (IUD). Patient expressed preference for Nexplanon implant. Will provide educational materials on all options. Provided extensive education on unprotected sex with partners of unknown status. Advised on use of condoms for sexually transmitted infection prevention and provided information on emergency contraception and HIV prophylaxis services. Blurry vision - Reports episodes of blurry vision. - Referred to ophthalmology for further evaluation. Advised to follow up if no contact from ophthalmology within 4 to 6 weeks. Visit Conducted in: Senegalese Translation by: [employer] soln ID #[id number] [1] There is no problem list on file for this patient. [2] History reviewed. No pertinent surgical history. [3] Family History Problem Relation Name Age of Onset Diabetes Maternal Grandmother Alzheimer's disease Paternal Grandfather 64 [4] No Known Allergies [5] No current outpatient medications on file. No current facility-administered medications for this visit. documented in this encounter Plan of Treatment Upcoming Encounters Date Type Department Care Team (Late st Contact Info) Description 09/07/2025 9:00 AM EDT Office Visit [facility] [address] [place] [phone] Darshana Hendrix FNP [address] [place] [address] 09/14/2025 11:15 AM EDT Procedure Visit [facility] [address] [place] [address] Darshana Hendrix FNP [address] [place] [address] Scheduled Orders Name Type Priority Associated Diagnoses Orde r Schedule Hepatitis B Core Antibody, Total Lab Routine Adult wellness visit Expected: 08/24/2025 (Approximate), Expires: 08/22/2026 Hepatitis B Surface Antibody, Qualitative Lab Routine Adult wellness visit Expected: 08/24/2025 (Approximate), Expires: 08/22/2026 Hepatitis B surface antigen, EIA Lab Routine Adult wellness visit Expected: 08/24/2025 (Approximate), Expires: 08/22/2026 Hepatitis C Antibody with Reflex to HCV, RNA, Quantitative, Real-Time PCR Lab Routine Adult wellness visit Expected: 08/24/2025, Expires: 08/22/2026 HIV-1/2 Antigen and Antibodies, Fourth Generation, with Reflexes Lab Routine Adult wellness visit Expected: 08/24/2025 (Approximate), Expires: 08/22/2026 Chlamydia/N. Gonorrhoeae, PCR, Urine Lab Routine Adult wellness visit Ordered: 08/24/2025 Syphilis Screen Lab Routine Adult wellness visit Expected: 08/24/2025, Expires: 08/24/2026 Scheduled Referrals Name Type Priority Associated Diagnoses Orde r Schedule Referral to Optometry Outpatient Referral Routine Blurry vision, bilateral Expected: 08/24/2025 (Approximate), Expires: 08/24/2026 documented as of this encounter Procedures Procedure Name Priority Date/Time Associated Diagnosis Comments CBC WITH AUTO DIFFERENTIAL Routine 08/24/2025 11:45 AM EDT Adult wellness visit LIPID PANEL, STANDARD Routine 08/24/2025 11:45 AM EDT Adult wellness visit COMPREHENSIVE METABOLIC PANEL Routine 08/24/2025 11:45 AM EDT Adult wellness visit documented in this encounter Results * Lipid Panel, Standard (08/24/2025 11:45 AM EDT) Triglycerides 132 <150 mg/dL [facility] Comment:Desirable Triglyceri de: less than 150 mg/dLBorderline High Triglyceride 150-199 mg/dLHigh Triglyceride: 200-499 mg/dLVery High Triglyceride: greater than or equal to 5OO mg/dL Cholesterol 175 <200 mg/dL [facility] Comment:Desirable Cholestero l: less than 200 mg/dLBorderline High Cholesterol: 200-239 mg/dLHigh Cholesterol: greater than 239 mg/dL LDL Cholesterol Calculated 91 <100 mg/dL [facility] Comment:Desirable LDL: less than 100 mg/dLNear Optimal/Above Optimal LDL: 110- 129 mg/dLBorderline High LDL: 130-159 mg/dLHigh LDL: 160-189 mg/dLVery High LDL: greater than or equal to 190 mg/dL HDL Cholesterol 58 >40 mg/dL [facility] Comment:Desirable HDL: great er than 40 mg/dL Note: This HDL assay may give artificially low results in patients with liver disease. Blood Venous blood specimen / Unknown 08/24/2025 11:45 AM EDT 08/24/2025 1:30 PM EDT us Darshana Hendrix TOTER LAB BLOOD ORDERABLES Final Res ult [facility] [address], [place] [phone] * CBC auto differential (08/24/2025 11:45 AM EDT) White Blood Count 7.6 4.8 - 10.8 X10*3/uL [facility] Red Blood Count 4.87 4.20 - 5.50 X10*6/uL [facility] Hemoglobin 14.4 12.0 - 16.0 g/dl [facility] Hematocrit 43.4 37.0 - 47.0 % [facility] Mean Corpuscular Volume 89.1 80.0 - 98.0 fL [facility] Mean Corpuscular Hemoglobin 29.6 27.0 - 33.0 pg [facility] Mean Corpuscular HGB Conc 33.2 31.0 - 35.0 g/dl [facility] Red Cell Distribution Width 13.2 11.0 - 16.0 % [facility] Platelet Count 309 160 - 400 X10*3/uL [facility] Mean Platelet Volume 10.7 9.4 - 12.3 fL [facility] Neutrophils Percent Auto 59.8 45 - 73 % [facility] Imm Gran Pct Auto 0.3 0.0 - 0.4 % [facility] Lymphocytes Percent Auto 32.5 20 - 40 % [facility] Monocytes Percent Auto 5.0 2 - 11 % [facility] Eosinophils Percent Auto 1.6 0 - 4 % [facility] Basophils Percent Auto 0.8 0 - 2 % [facility] NRBC Pct Auto 0.0 0.0 - 0.2 /100WBC [facility] Neutrophils Absolute Auto 4.6 2.0 - 8.3 x10*3/uL [facility] Imm Gran Abs Auto 0.02 0.00 - 0.03 X10*3/uL [facility] Lymphocytes Absolute Auto 2.5 1.2 - 4.9 X10*3/uL [facility] Monocytes Absolute Auto 0.4 0.1 - 1.2 X10*3/uL [facility] Eosinophils Absolute Auto 0.1 0.0 - 0.4 X10*3/uL [facility] Basophils Absolute Auto 0.1 0.0 - 0.2 X10*3/uL [facility] NRBC Abs Auto 0.000 0.0 - 0.012 X10*3/uL [facility] Blood Venous blood specimen / Unknown 08/24/2025 11:45 AM EDT 08/24/2025 1:30 PM EDT us Darshana Hendrix TOTER LAB BLOOD ORDERABLES Final Res ult [facility] [address] [place] [phone] * (ABNORMAL) Comprehensive Metabolic Panel (08/24/2025 11:45 AM EDT) Sodium 139 135 - 145 mmol/L [facility] Potassium 4.9 3.3 - 5.1 mmol/L [facility] Chloride 104 96 - 108 mmol/L [facility] Carbon Dioxide 28 22 - 29 mmol/L [facility] Anion Gap 12 12 - 20 [facility] Urea Nitrogen (BUN) 14 9 - 16 mg/dL [facility] Creatinine, Serum 0.71 0.5 - 1.4 mg/dL [facility] Estimated Glomerular Filt Rate >60 [facility] Comment:Chronic Kidney Disea se: Estimated GFR < 60 mL/min/[id number] Kidney Disease: Estimated GFR < 15 mL/min/1.73m2 Glucose 88 60 - 115 mg/dL [facility] Calcium 10.3(H) 8.4 - 10.2 mg/dL [facility] Bilirubin, Total 0.7 0.0 - 1.0 mg/dL [facility] Aspartate Amino Transferase 26 5 - 31 U/L [facility] Alanine Aminotransferase 14 0 - 31 U/L [facility] Total Protein 8.0 6.5 - 8.0 g/dL [facility] Albumin Level 4.8 3.5 - 5.0 g/dL [facility] Alkaline Phosphatase 87 39 - 117 U/L [facility] Blood Venous blood specimen / Unknown 08/24/2025 11:45 AM EDT 08/24/2025 1:30 PM EDT us Darshana Hendrix TOTER LAB BLOOD ORDERABLES Final Res ult [facility] [address] [place] [address] [phone] documented in this encounter Visit Diagnoses Diagnosis Adult wellness visit- Primary Encounter for sexual health education Contraceptive education Unspecified contraceptive management Blurry vision, bilateral Other specified visual disturbances documented in this encounter Additional Health Concerns Assessment Noted Time PHQ-9 Depression Total Score: 1 08/24/20 11:35 AM EDT documented as of this encounter Care Teams Creative Writing Teacher Relationship Specialty Start Date End Date Cyndi Sen Shopper Marketing Manager 12/28/24 documented as of this encounter
[2025-08-24 13:35] LABS: MANUAL DIFF FLAG NO
[2025-08-24 13:51] LABS: Hematocrit 43.4 % (37.0-47.0); Hemoglobin 14.4 g/dl (12.0-16.0); Imm Gran Abs Auto 0.02 X10*3/uL (0.00-0.03); Imm Gran Pct Auto 0.3 % (0.0-0.4); Lymphocytes Absolute Auto 2.5 X10*3/uL (1.2-4.9); Mean Corpuscular HGB Conc 33.2 g/dl (31.0-35.0); Mean Corpuscular Hemoglobin 29.6 pg (27.0-33.0); Mean Corpuscular Volume 89.1 fL (80.0-98.0); NRBC Abs Auto 0.000 X10*3/uL (0.0-0.012); NRBC Pct Auto 0.0 /100WBC (0.0-0.2); Platelet Count 309 X10*3/uL (160-400); Red Blood Count 4.87 X10*6/uL (4.20-5.50); White Blood Count 7.6 X10*3/uL (4.8-10.8)
[2025-08-24 14:22] LABS: Alanine Aminotransferase 14 U/L (0-31); Albumin Level 4.8 g/dL (3.5-5.0); Alkaline Phosphatase 87 U/L (39-117); Anion Gap 12 (12-20); Aspartate Amino Transferase 26 U/L (5-31); Blood Urea Nitrogen 14 mg/dL (9-16); Calcium 10.3 mg/dL (8.4-10.2); Carbon Dioxide 28 mmol/L (22-29); Chloride 104 mmol/L (96-108); Cholesterol 175 mg/dL (<200); Estimated Glomerular Filt Rate > 60; HDL Cholesterol 58 mg/dL (>40); Potassium 4.9 mmol/L (3.3-5.1); Sodium 139 mmol/L (135-145); Total Protein 8.0 g/dL (6.5-8.0); Triglycerides 132 mg/dL (<150)
--- OUTSIDE RECORDS SUMMARY | 2025-08-24 14:47 | XMS_ITS | Encounter Summary ---
Author Organization [employer] Address [address] [place] [address] Care Team Providers Care Caretaker Grounds Name Role Phone Unavailable Primary Care Provider Unavailabl e Encounter Details Date Type Department Care Team (Latest Contact Info) Description 08/24/2025 Travel Social History Tobacco Use Types Packs/Day Years Used Date Smoking Tobacco: Never Passive Smoke Exposure: Never Smokeless Tobacco: Never Depression Answer Date Recorded Patient Health Questionnaire-9 Score 1 08/24/2025 Patient Health Questionnaire-9 Score 1 08/24/2025 Last PHQ-9: Questionnaire Data Not on file 1 Housing Stability Answer Date Recorded What is your housing situation today? I do not have housing (Staying with others, in a hotel, in a residential, living outside on the street, on a [...] available where I live 01/06/2025 Comments Unknown Sex and Gender Information Value Date Recorded Sex Assigned at Unknown 01/18/2025 9:23 AM EST Legal Sex Female 1:45 PM EST Gender Identity Choose not to disclose 9:23 AM EST Sexual Orientation Don't know 01/18/2025 9: 23 AM EST documented as of this encounter Functional Status * Over the past 2 weeks, how often have you been bothered by any of the following problems? Question Answer Date of Assessment Author Patient Health Questionnaire-2 Score 0 08/24/2025 11:35 AM Kalyn Robb MA * Little interest or pleasure in doing things Answer Date of Assessment Author Not at all 08/24/2025 11:35 AM Kalyn Wren Ma, [place] * Feeling down, depressed, or hopeless Answer Date of Assessment Author Not at all 08/24/2025 11:35 AM Kalyn Wren Ma, [place] * Trouble falling or staying asleep, or sleeping too much Answer Date of Assessment Author Not at all 08/24/2025 11:35 AM Kalyn Wren Ma, [place] * Feeling tired or having little energy Answer Date of Assessment Author Several days 08/24/2025 11:35 AM Kalyn Wren Ma, [place] * Poor appetite or overeating Answer Date of Assessment Author Not at all 08/24/2025 11:35 AM Kalyn Wren Ma, [place] * Feeling bad about yourself - or that you are a failure or have let yourself or your family down Answer Date of Assessment Author Not at all 08/24/2025 11:35 AM Kalyn Wren Ma, [place] * Trouble concentrating on things, [...] AM EDT Kalyn Young Ma, [place] * Thoughts that you would [...] or control worrying 0 08/24/2025 11:35 AM Kalyn Yancey MA Worrying too much about different things 0 08/24/2025 11:35 AM Kalyn Yancey MA Trouble relaxing 0 08/24/2025 11:35 AM ILENET Kalyn Fuentes MA Being so restless that it is hard to sit still 0 08/24/2025 11:35 AM Kalyn Yancey MA Becoming easily annoyed or irritable 0 08/24/2025 11:35 AM Kalyn Yancey MA Feeling afraid as if something awful might happen 0 08/24/2025 11:35 AM EDT Kalyn Diamond MA CONSTANTINO-7 Total Score 0 08/24/2025 11:35 AM Kalyn Yancey MA documented as of this encounter Plan of Treatment Upcoming Encounters Date Type Department Care Team (Late Contact Info) Description 09/07/2025 9:00 AM EDT Office Visit [facility] [address] [place] [address] Darshana Hendrix FNP [address] [place] [address] 09/14/2025 11:15 AM EDT Procedure Visit [facility] [address] [facility] [place] [address] Darshana Hendrix FNP [address] [facility] [place] [address] documented as of this encounter Visit Diagnoses Not on filedocumented in this encounter Additional Health Concerns Assessment Noted Time PHQ-9 Depression Total Score: 1 08/24/20 11:35 AM EDT documented as of this encounter Care Teams Caretaker Grounds Relationship Specialty Start Date End Date Cyndi Sen Audiometric Technician 12/28/24 documented as of this encounter
--- OUTSIDE RECORDS SUMMARY | 2025-08-24 14:47 | XMS_ITS | Encounter Summary ---
Author Organization [employer] Address [address] [facility] 7[address] [place] [address] Care Team Providers Care Home Energy Inspector Name Role Phone Unavailable Primary Care Provider Unavailabl e Reason for Visit * Reason Comments Care Coordination C3CM/HUMBERTO Mcclellan- Follow up call Encounter Details Date Type Department Care Team (Latest Contact Info) Description 2025 Patient Outreach [facility] [address] [place] [address] Cris Sprague Care Coordination (LUCIE/HUMBERTO Sparks- Follow up call) Social History Tobacco Use Types Packs/Day Years Used Date Smoking Tobacco: Never Assessed Housing Stability Answer Date Recorded What is your housing situation today? I do not have housing (Staying with others, in a hotel, in a assisted, living outside on the street, on a beach, in a car, or in a park 12/08/[address] you li ve. Do you have problems with any of the following? None of the above 12/08/2024 Food Insecurity Answer Date Recorded Within the [...] living? Yes, it has kept me from non-medical meetings, work, or getting things that I need 01/06/2025 Utilities Answer Date Recorded In the past 12 months, has t he electric, gas, oil or water company threatened to shut off services in your home? No 12/08/2024 Internet Access Answer Date Recorded Internet Access Q1 No 01/06/2025 Internet Access Q2 I cannot afford it;I nternet/Wi-Fi access is not available where I live 01/06/2025 Comments No Sex and Gender Information Value Date Recorded Sex Assigned at Unknown 01/18/2025 9:23 AM EST Legal Sex Female 1:45 PM EST Gender Identity Choose not to disclose 9:23 AM EST Sexual Orientation Don't know 01/18/2025 9: 23 AM EST documented as of this encounter Progress Notes * Cris Sprague - 2025 12:00 PM EDT CHW Cris Sprague placed follow up call to patient in regards to assist with SDOH needs. Patient's and address was confirmed. Per patient, in need of PT- 1 services for upcoming NO appointment on 08/24/2025 @10:30 AM with arrival of 10:15AM at [facility]. CHW was able to schedule transportation for patient. Home corn picker at 9:45AM, with return home at 11:30AM. CHW also reminded patient CHW had previously provided with PT-1 number [phone] to request transportation assistance.Patient expressed having forgotten but took note of it now for future appts. No other SDOH needs. No further questions or concerns. CHW reinforced direct contact information for any additional questions or concerns and extended clinic hours on Mondays and Wednesdays, and Walk-In Urgent Care Located in [facility]. Patient provided with after-hours line for [facility], , whichoffer night time triage service and option to transfer to ammonia box operator provider if needed. Patient verbalizes understanding, and able to repeat back to health technical writer. documented in this encounter Plan of Treatment Upcoming Encounters Date Type Department Care Team ([facility] st Contact Info) Description 09/07/2025 9:00 AM EDT Office Visit [facility] [address] [place] [address] Darshana Hendrix FNP [address] [place] [address] 09/14/2025 11:15 AM EDT Procedure Visit [facility] [address], [place] [phone] Darshana Hendrix, LABOR RELATIONS REPRESENTATIVE [address] [place] [address] documented as of this encounter Visit Diagnoses Not on filedocumented in this encounter Care Teams Home Energy Inspector Relationship Specialty Start Date End Date Cyndi Sen Optimization Manager 12/28/24 documented as of this encounter
--- OUTSIDE RECORDS SUMMARY | 2025-08-24 14:47 | XMS_ITS | Encounter Summary ---
Author Organization [employer] Address [address] [facility] 7t [place] [address] Care Team Providers Care Assembler Liquid Center Name Role Phone Unavailable Primary Care Provider Unavailabl e Reason for Visit * Reason Onset Date Comments Care Management 2025 C3CM follow up c all Encounter Details Date Type Department Care Team ([facility] st Contact Info) Description 2025 Telephone [facility] MEDICINE [address] [place] [address] Cyndi Sen Care Management (C3CM follow up call) Social History Tobacco Use Types Packs/Day Years Used Date Smoking Tobacco: Never Assessed Housing Stability Answer Date Recorded What is your housing situation today? I do not have housing (Staying with others, in a hotel, in a alf, living outside on the street, on a [...] AM EST documented as of this encounter Miscellaneous Notes * Telephone Encounter - Cyndi Sen - 2025 11:51 AM EDT CM Cyndi Sen RN and CHChelsey Sprague placed outbound call to patient. Patient's name, and address confirmed. Patient states is doing well with no recent illnesses or emergency room visits. Patient and are doing well. CM asked about early intervention for infant and she states when we last spoke she was confused, at this time only her 4 year old is receiving early intervention services. Per patient they are waiting to determine if they are going to offer services to the . Forestry Tree Pruner reviewed no show x2 for new patient appointment. Patient was rescheduled for 08/24/25 10:30am, patient is aware of this appointment and SAGAR Lynch is assisting patient set up PT-1 for this appointment. Forestry Tree Pruner educated on importance of attending appointment and the possility that she goes on a waitlist if this appointment were missed. No further questions or concerns. CM reinforced direct contact information or CHW for any additional questions or concerns. Education provided on Walk-In Urgent Care located in [facility]. Patient provided with after-hours line for [facility], , which offer night time triage service and option to transfer to sergeant of corrections provider if needed. Patient verbalizes understanding, and able to repeat back to parts data writer. A follow up call will be placed within 1 month, patientagrees with plan. documented in this encounter Plan of Treatment Upcoming Encounters Date Type Department Care Team (Late st Contact Info) Description 09/07/2025 9:00 AM EDT Office Visit [facility] MEDICINE [address] [place] [address] Darshana Hendrix FNP [address] [place] [address] 09/14/2025 11:15 AM EDT Procedure Visit [facility] [address] [place] [address] Darshana Hendrix FNP [address] [place] [address] documented as of this encounter Visit Diagnoses Not on filedocumented in this encounter Care Teams Assembler Liquid Center Relationship Specialty Start Date End Date Cyndi Sen Forestry Tree Pruner 12/28/24 documented as of this encounter
--- OUTSIDE RECORDS SUMMARY | 2025-08-24 14:47 | XMS_ITS | Encounter Summary ---
Author Organization [employer] Address [address] [facility] 7t [place] [address] Care Team Providers Care Minister Assistant Name Role Phone Unavailable Primary Care Provider Unavailabl e Reason for Visit * Reason Onset Date Comments Chart Prep 08/23/2025 Encounter Details Date Type Department Care Team (Late st Contact Info) Description 08/23/2025 Telephone [facility] [address] [place] [address] Darshana Hendrix FNP [address] [place] [address] Chart Prep Social History Tobacco Use Types Packs/Day Years Used Date Smoking Tobacco: Never Assessed Depression Answer Date Recorded Patient Health Questionnaire-9 Score 1 08/24/2025 Patient Health Questionnaire-9 Score 1 08/24/2025 Last PHQ-9: Questionnaire Data Not on file 1 Housing Stability Answer Date Recorded What is your housing situation today? I do not have housing (Staying with others, in a hotel, in a snf, living outside on the street, on a [...] encounter Miscellaneous Notes * Telephone Encounter - Gabrielle Fitzgerald [place] - 08/23/2025 10:03 AM EDT Chart Prep Labs: not applicable Images: not applicable Referrals: not applicable Vaccines due: Covid, Flu, Hep B, and HPV Meningococcal B Vaccine Screenings: pap smear and STI screeningAlcohol/Substance Use Screening Overdue care gaps: SBIRT, PHQ-9, CONSTANTINO-7, Disability screen, and Tobacco documented in this encounter Plan of Treatment Upcoming Encounters Date Type Department Care Team (Late st Contact Info) Description 09/07/2025 9:00 AM EDT Office Visit [facility] [address] [place] [phone] Darshana Hendrix FNP [address] [place] [address] 09/14/2025 11:15 AM EDT Procedure Visit [facility] [address] [place] [address] Darshana Hendrix FNP [address] [place] [address] documented as of this encounter Visit Diagnoses Not on filedocumented in this encounter Care Teams Minister Assistant Relationship Specialty Start Date End Date Cyndi Sen Director Of Therapy Services 12/28/24 documented as of this encounter
--- OUTSIDE RECORDS SUMMARY | 2025-08-24 14:47 | XMS_ITS | Clinical Summary ---
Author Organization [facility] [employer] [facility] Address [address] [facility] [address] [address] Care Team Providers Care Credit Relationship Manager Name Role Phone Unavailable Primary Care Provider Unavailabl e Allergies No known active allergies Medications No known medications Active Problems Problem Noted Date Diagnosed Date Blurry vision, bilateral 08/24/2025 Encounters Date Type Department Care Team Description 08/24/2025 10:30 AM EDT Office Visit [address] [address] Darshana Hendrix FNP Adult wellness visit (Primary Dx); Encounter for sexual health education; Contraceptive education; Blurry vision, bilateral 08/24/2025 Travel 08/23/[address] [address] Darshana Hendrix FNP CHART PREP 08/23/[address] [address] Darshana Hendrix FNP Chart Prep 2025 Patient Outreach [address] [address] Cris Sprague Care Coordination (C3CM/CHW HUMBERTO Hoyos- Follow up call) [address] [address] Cyndi Sen Care Management (C3CM follow up call) 08/17/2025 Patient Outreach [facility] [address] [place] [address] Darshana Hendrix FNP Pre-visit Planning (SDOH was already completed) 07/26/2025 Telephone [facility] [address] [place] [address] Darshana Hendrix FNP Chart Prep 07/23/2025 Patient Outreach [address] [address] Cris Sprague Care Coordination ([facility]/HUMBERTO Moore-PT-1 update/PATIENT SERVICE COORDINATOR appt reminder) 07/06/2025 Patient Outreach [address] [address] Cris Sprague Care Coordination ([facility]/HUMBERTO Moore- Follow up call) 07/06/[address] [address] Delvin Pat MD 07/06/[address] [address] Cyndi Sen Care Management ([facility] follow up call) 06/17/2025 Patient Outreach [address] [address] Cris Sprague Care Coordination ([facility]/HUMBERTO Moore#1- Follow up-LVM) 06/11/[address] [address] Cyndi Sen Care Management ([facility] TC #2-lvm) 06/03/2025 Patient Outreach [address] [address] Cris Sprague Care Coordination ([facility]/HUMBERTO Moore-Follow up call) from Last 3 Months Immunizations Immunization Administration Dates Next Due Influenza, seasonal, injectable, preservative fr ee 10/16/2024 RSV Bivalent 10/16/2024 Tdap 10/16/2024 Varicella 10/02/2024 Family History Medical History Relation Name Comments Diabetes Maternal Grandmother Alzheimer's disease Paternal Grandfather Relation Name Status Comments Maternal Grandmother Paternal Grandfather Social History Tobacco Use Types Packs/Day Years [...] with others, in a hotel, in a jail, living outside on the street, on a [...] Don't know 01/18/2025 9: 23 AM EST Last Filed Vital Signs Vital Sign Reading [...] Mass Index 20.25 08/24/2025 10:16 AM EDT Plan of Treatment Upcoming Encounters Date Type Department Care Team (Late st Contact Info) Description 09/07/2025 9:00 AM EDT Office Visit [facility] MED[facility] [address] [place] [address] Darshana Hendrix, CLEANER AND POLISHER [address] [place] [address] 09/14/2025 11:15 AM EDT Procedure Visit [facility] [address] [place] [address] Darshana Hendrix FNP [address] [place] [address] Health Maintenance Due Date Last Done Comments Chlamydia and Gonorrhea Screening 2002 HIV Screening 2002 Meningococcal B Vaccine (1 o f 2 - Standard) 2018 Hepatitis C Screening 2020 Hepatitis B Vaccines (1 of 3 - 19+ 3-dose series) 2021 Pap Smear 2023 Influenza Vaccine (#1) 2026 10/16/2024 Postp oned from 07/19/2025 (Patient Refused) Alcohol/Substance Use Screening 08/24/2026 08/24/2025 COVID-19 Vaccine (1 - 2023-2 5 season) 2026 Postponed from 07/19 (Patient Refused) Depression Screening 08/24/2026 08/24/2025, 08/24/2025 Disability Screening 08/24/2026 08/24/2025 Family Planning (PISQ) 08/24/2026 08/24/2025 HPV Vaccines (1 - 3-dose series) 08/24/2026 Postponed from 08/20 (Patient Refused) SDOH Screening 08/24/2026 08/24/2025 Tobacco Screening 08/24/2026 08/24/2025 DTaP/Tdap/Td Vaccines (2 - T d or Tdap) 10/16/2034 10/16/2024 Zoster Vaccines (1 of 2) 2052 RSV Patients and Patients Aged 60 years or older Completed 10/16/2024 HIB Vaccines Aged Out No longer eligi ble based on patient's age to complete this topic Hepatitis A Vaccines Aged Out No long er eligible based on patient's age to complete this topic IPV Vaccines Aged Out No longer eligi ble based on patient's age to complete this topic Meningococcal Vaccine Aged Out No eduardo enrike eligible based on patient's age to complete this topic Pneumococcal Vaccine: Pediatrics (0 to 5 Years) and At-Risk Patients (6 to 49) Years Aged Out No longer eligible b ased on patient's age to complete this topic RSV under 20 months Aged Out No longe r eligible based on patient's age to complete this topic Rotavirus Vaccines Aged Out No longer eligible based on patient's age to complete this topic Procedures Procedure Name Priority Date/Time Associated Diagnosis Comments LIPID PANEL, STANDARD Routine 08/24/2025 11:45 AM EDT Adult wellness visit CBC WITH AUTO DIFFERENTIAL Routine 08/24/2025 11:45 AM EDT Adult wellness visit COMPREHENSIVE METABOLIC PANEL Routine 08/24/2025 11:45 AM EDT Adult wellness visit from Last 3 Months Results * CBC auto differential (08/24/2025 11:45 AM EDT) White Blood Count 7.6 4.8 - 10.8 X10*3/uL [facility] Red Blood Count 4.87 4.20 - 5.50 X10*6/uL [facility] Hemoglobin 14.4 12.0 - 16.0 g/dl [facility] Hematocrit 43.4 37.0 - 47.0 % [facility] Mean Corpuscular Volume 89.1 80.0 - 98.0 fL [facility] Mean Corpuscular Hemoglobin 29.6 27.0 - 33.0 pg [facility] Mean Corpuscular HGB Conc 33.2 31.0 - 35.0 g/dl [facility] Red Cell Distribution Width 13.2 11.0 - 16.0 % [facility] Platelet Count 309 160 - 400 X10*3/uL [facility] Mean Platelet Volume 10.7 9.4 - 12.3 fL [facility] Neutrophils Percent Auto 59.8 45 - 73 % [facility] Imm Gran Pct Auto 0.3 0.0 - 0.4 % [facility] Lymphocytes Percent Auto 32.5 20 - 40 % [facility] Monocytes Percent Auto 5.0 2 - 11 % [facility] Eosinophils Percent Auto 1.6 0 - 4 % [facility] Basophils Percent Auto 0.8 0 - 2 % [facility] NRBC Pct Auto 0.0 0.0 - 0.2 /100WBC [facility] Neutrophils Absolute Auto 4.6 2.0 - 8.3 x10*3/uL [facility] Imm Gran Abs Auto 0.02 0.00 - 0.03 X10*3/uL [facility] Lymphocytes Absolute Auto 2.5 1.2 - 4.9 X10*3/uL [facility] Monocytes Absolute Auto 0.4 0.1 - 1.2 X10*3/uL [facility] Eosinophils Absolute Auto 0.1 0.0 - 0.4 X10*3/uL [facility] Basophils Absolute Auto 0.1 0.0 - 0.2 X10*3/uL [facility] NRBC Abs Auto 0.000 0.0 - 0.012 X10*3/uL [facility] Blood Venous blood specimen / Unknown 08/24/2025 11:45 AM EDT 08/24/2025 1:30 PM EDT us Darshana Hendrix CLEANER AND POLISHER LAB BLOOD ORDERABLES Final Res ult [facility] [address] [place] [address] [phone] * Lipid Panel, Standard (08/24/2025 11:45 AM EDT) Triglycerides 132 <150 mg/dL [facility] Comment:Desirable Triglyceri de: less than 150 mg/dLBorderline High Triglyceride 150-199 mg/dLHigh Triglyceride: 200-499 mg/dLVery High Triglyceride: greater than or equal to 5OO mg/dL Cholesterol 175 <200 mg/dL [facility] Comment:Desirable Cholestero l: less than 200 mg/dLBorderline High Cholesterol: 200-239 mg/dLHigh Cholesterol: greater than 239 mg/dL LDL Cholesterol Calculated 91 <100 mg/dL [facility] Comment:Desirable LDL: less than 100 mg/dLNear Optimal/Above Optimal LDL: 110- 129 mg/dLBorderline High LDL: 130-159 mg/dLHigh LDL: 160-189 mg/dLVery High LDL: greater than or equal to 190 mg/dL HDL Cholesterol 58 >40 mg/dL [facility] Comment:Desirable HDL: great er than 40 mg/dL Note: This HDL assay may give artificially low results in patients with liver disease. Blood Venous blood specimen / Unknown 08/24/2025 11:45 AM EDT 08/24/2025 1:30 PM EDT us Darshana Hendrix CLEANER AND POLISHER LAB BLOOD ORDERABLES Final Res ult [facility] [address] [place] [address] [phone] * (ABNORMAL) Comprehensive Metabolic Panel (08/24/2025 11:45 AM EDT) Sodium 139 135 - 145 mmol/L [facility] Potassium 4.9 3.3 - 5.1 mmol/L [facility] Chloride 104 96 - 108 mmol/L [facility] Carbon Dioxide 28 22 - 29 mmol/L [facility] Anion Gap 12 12 - 20 [facility] Urea Nitrogen (BUN) 14 9 - 16 mg/dL [facility] Creatinine, Serum 0.71 0.5 - 1.4 mg/dL [facility] Estimated Glomerular Filt Rate >60 [facility] Comment:Chronic Kidney Disea se: Estimated GFR < 60 mL/min/1.66q9Hlictj Kidney Disease: Estimated GFR < 15 mL/min/1.73m2 Glucose 88 60 - 115 mg/dL [facility] Calcium 10.3(H) 8.4 - 10.2 mg/dL [facility] Bilirubin, Total 0.7 0.0 - 1.0 mg/dL [facility] Aspartate Amino Transferase 26 5 - 31 U/L [facility] Alanine Aminotransferase 14 0 - 31 U/L [facility] Total Protein 8.0 6.5 - 8.0 g/dL [facility] Albumin Level 4.8 3.5 - 5.0 g/dL [facility] Alkaline Phosphatase 87 39 - 117 U/L [facility] Blood Venous blood specimen / Unknown 08/24/2025 11:45 AM EDT 08/24/2025 1:30 PM EDT us Darshana Hendrix CLEANER AND POLISHER LAB BLOOD ORDERABLES Final Res ult [facility] [address] [place] [address] [phone] from Last 3 Months Insurance [employer] Care Teams Credit Relationship Manager Relationship Specialty Start Date End Date Cyndi Sen Safety Deposit Supervisor 12/28/24
--- OUTSIDE RECORDS SUMMARY | 2025-08-24 14:47 | XMS_ITS | Encounter Summary ---
Author Organization [employer] Address [address] [facility] 7t [place] [address] Care Team Providers Care Computerized Mill Mill Recorder Name Role Phone Unavailable Primary Care Provider Unavailabl e Reason for Visit * Reason Onset Date Comments CHART PREP 08/23/2025 Encounter Details Date Type Department Care Team (Late st Contact Info) Description 08/23/2025 Telephone [facility] [address] [place] [address] Darshana Hendrix FNP [address] [place] [address] CHART PREP Social History Tobacco Use Types Packs/Day Years Used Date Smoking Tobacco: Never Assessed Depression Answer Date Recorded Patient Health Questionnaire-9 Score 1 08/24/2025 Patient Health Questionnaire-9 Score 1 08/24/2025 Last PHQ-9: Questionnaire Data Not on file 1 Housing Stability Answer Date Recorded What is your housing situation today? I do not have housing (Staying with others, in a hotel, in a prison, living outside on the street, on a [...] encounter Miscellaneous Notes * Telephone Encounter - Modesta Stiles [place] - 08/23/2025 2:29 PM EDT Chart Prep Labs: not applicable Images: not applicable Referrals: not applicable Vaccines due: Covid, Flu, Hep B, and HPV Screenings: pap smear and LMP Overdue care gaps: SBIRT, PHQ-9, CONSTANTINO-7, Oral health screening, and Disability screen documented in this encounter Plan of Treatment Upcoming Encounters Date Type Department Care Team (Late st Contact Info) Description 09/07/2025 9:00 AM EDT Office Visit [facility] [address] [place] [address] Darshana Hendrix FNP [address] [place] [address] 09/14/2025 11:15 AM EDT Procedure Visit [facility] [address] [place] [address] Darshana Hendrix FNP [address] [place] [address] documented as of this encounter Visit Diagnoses Not on filedocumented in this encounter Care Teams Computerized Mill Mill Recorder Relationship Specialty Start Date End Date Cyndi Sen Last Ironer 12/28/24 documented as of this encounter
--- OUTSIDE RECORDS SUMMARY | 2025-08-24 14:48 | XMS_ITS | Patient Health Record ---
Author Organization [facility] Address [address] [place] [phone] Support Name Relationship Address Phone Ashli Bauer Guarantor Unknown Allergies No Known Allergies Reason For Referral No Information Medications Medication SIG (Take, Route, Frequency, Duration) Notes Start Date End Date Status Xulane 150-35 MCG/24HR Patch Weekly 1 patch to skin Transdermal Apply one patch once a week for three weeks. Fourth week patch free.; Duration: 28 days 02/03/2024 Active metroNIDAZOLE 500 MG Tablet 1 tablet Ora lly Twice a day, every 12 hours; Duration: 7 days 02/03/2024 Active Doxycycline Monohydrate 100 MG Capsule 1 capsule Orally Twice a day; Duration: 7 days 02/03/2024 Active Social History Sex Assigned At : Social History Observation Description Sex Assigned At Female Social History HIV Risk Assessment Social Info Question Answer Notes Additional Questions Is an HIV Risk Assessment being c onducted? Yes Have you been tested for HIV before? Yes Did you have a blood transfusion prior to 1985? No Do you have an unlicensed body piercing or tattoo? Yes Reproductive Life Plan: Social Info Question Answer Notes Reproductive Life Plan: Do you want to h ave children? No, I don't want to have children How sure are you that you will be able to use your control method without any problems? Very sure People's plans change. Is it possible you or your partner could ever decide to become ? No Human Trafficking: Social Info Question Answer Notes Human Trafficking Experienced: No Sexual History: Social Info Question Answer Notes Sexual History: Sexual History Reviewed: Partner s, Practices, Protection/Past STIs, Prevention of , ___ Currently sexually active? Yes Sexually active with: Men Number of male partners 1 Your sexual activities include: oral intercourse, vaginal intercourse Number of partners in past 3 months: 1 Number of partners in past year: 1 Does your partner(s) currently have any STIs? Yes Partner(s) currently STIs: Gonorrhea Counseling Provided: Social Info Question Answer Notes Counseling Provided Please indicate the length of time, in minutes, that counseling was provided. 6 Counseling Was Provided By: simone Drugs/Alcohol: Social Info Question Answer Notes Drug/Alcohol Use Do you or have you used drugs? Yes, c urrently By what route are you taking drugs? Please check all that apply: Smoking Which drug(s) do you smoke? Marijuana Do you or have you used alcohol? Yes, in the pas t Food Access: Social Info Question Answer Notes Food Access The Client's current access to food is Secure Food Access Relationships: Social Info Question Answer Notes Relationships Has the client exper ienced any of the following: Reproductive Coercion, Harmful Relationships, Sexual Coercion, Exchanged Sex for. . . Emotionally Yes Currently: No Physically: Yes Currently: No Sexually: No Been forced or pressured into sexual activities? No drugs, usp, safety, other. No Housing Social Info Question Answer Notes Housing The client's current living situation is: stable housing Tobacco Use: Social Info Question Answer Notes Tobacco Use: Do you/have you used tobacco? No Tobacco Smoking Status Never smoker Plan Of Treatment No Information Insurance Providers Payer Name Payer Address Payer Phone Subscriber Number Group Number Insured Name Patient Relationship to Insured Coverage Start Date Coverage End Date [place] ATT CLAIMS [address] [place] [address] [id number] Ashli Garcia Self - patient is the insured Medical (General) History Medical History History ICD Code chlamydia 09/2023 (questionable GC at th at time) BV, 01/2024
[2025-08-25 07:58] LABS: Syphilis Screen Nonreactive (Nonreactive)
[2025-08-25 08:27] LABS: HBS Num1 2.74 mIU/mL (0-7.99); HBc Num1 0.10 S/CO (0.00-0.79); HBsAGNum1 0.41 S/CO (0.00-0.99); HIV Num 1 0.12 S/CO (0.00-0.99); Hepatitis B Surface Antigen Negative (Negative); ~HepC Num1 0.14 S/CO (0.00-0.79); ~Hepatitis B Surface Antibody NONREACTIVE (Nonreactive); ~Hepatitis C Antibody Nonreactive (Nonreactive)
[2025-08-25 09:58] LABS: CT PCR Urine NOT DETECTED (Not Detect.); NG PCR Urine NOT DETECTED (Not Detect.)
== END 2025-08-24 11:40 | disposition home or self-care (01) ==
LOC: HO.HHCL 11:39
PROVIDERS: PCP Nurse Practitioner Family; Visit Provider Nurse Practitioner Family
DX: Z00.00 Encounter for general adult medical examination without abnormal findings (principal); Z20.2 Contact with and (suspected) exposure to infections with a predominantly sexual mode of transmission; Z11.4 Encounter for screening for human immunodeficiency virus [HIV]; Z11.59 Encounter for screening for other viral diseases
CPT/HCPCS: 36415; 80053; 80061; 85025; 86704; 86706; 86780; 86803; 87340; 87389; 87491; 87591